=== PATIENT | female | born 1980 | race Caucasian/White ===

== ENCOUNTER → 2017-08-07 | Outpatient (CLI) | payer OTHER ==
--- NOTE | 2017-08-07 11:38 | USB ---
Reason for exam: clinical finding. History: Family history of breast cancer in grandmother. Physical Findings: Nurse did not find any significant physical abnormalities on exam. US Breast LT Left complete breast ultrasound includes all four quadrants, the retroareolar region and axilla. Finding demonstrates a 4 x 3 x 4mm oval, mixed lesion at 1 o'clock. This has subtle through transmission. Possibly a complicated cyst or cluster of cysts. These results were verbally communicated with the patient and result sheet given to the patient on 08/07/17. ASSESSMENT: Incomplete: need additional imaging evaluation, BI-RAD 0 RECOMMENDATION: Follow-up diagnostic mammogram of the left breast.
--- NOTE | 2017-08-07 11:42 | MM ---
Reason for exam: additional evaluation requested from prior study. Baseline mammogram. History: Family history of breast cancer in grandmother. MG 3D Diag Mammo W/Cad GABY Bilateral CC and MLO view(s) were taken. 3mm central asymmetry on CC and 3mm mass at 1 o'clock corresponding to mammographic finding, possibly complicated cyst. These results were verbally communicated with the patient and result sheet given to the patient on 08/07/17. ASSESSMENT: Probably benign, BI-RAD 3 RECOMMENDATION: Follow-up diagnostic mammogram of the left breast in 6 months.
== END | disposition home or self-care (01) ==
LOC: RADUSWWP 09:43
PROVIDERS: ATTEND Family Medicine
DX: R92.8 Other abnormal and inconclusive findings on diagnostic imaging of breast (principal); N61.0 Mastitis without abscess
CPT/HCPCS: 77062; 77066

== ENCOUNTER → 2018-04-20 | Outpatient (CLI) | payer OTHER | END | disposition home or self-care (01) | LOC: LABWHC1 12:05 | PROVIDERS: ATTEND Obstetrics & Gynecology | DX: Z36.9 Encounter for antenatal screening, unspecified (principal) | CPT/HCPCS: 36415; 82950 ==

== ENCOUNTER 2018-07-13 06:04 | Inpatient (IN) | payer OTHER ==
[2018-07-13] MEDS ORDERED: METHYLERGONOVINE 0.2 MG/ML 1 ML AMP IM PRN (08:02)
[2018-07-13] MEDS ORDERED: CARBOPROST TROMETHAMINE 250 MCG/ML 1 ML AMP IM PRN (08:02)
[2018-07-13] MEDS ORDERED: TERBUTALINE 1 MG/ML VIAL SQ PRN (08:02)
[2018-07-13] MEDS ORDERED: LIDOCAINE 0.5% (PF) 5 MG/ML (50 ML SDV) SQ PRN (08:02)
[2018-07-13] MEDS ORDERED: OXYTOCIN 10 UNIT/ML 1 ML VIAL IM PRN (08:02)
[2018-07-13] MEDS ORDERED: LACTATED RINGERS 1,000 ML IV SCH (08:15)
[2018-07-13 08:57] LABS: Basophils % (A) 0 %; Eosinophils # (A) 0.2 k/uL (0-0.7); Eosinophils % (A) 1 %; HCT 41.4 % (34.0-46.0); HGB 12.9 gm/dL (11.4-16.0); Lymphocytes # (A) 2.4 k/uL (1.0-4.8); Lymphocytes % (A) 13 %; MCH 29.2 pg (25.0-35.0); MCHC 31.2 g/dL (31.0-37.0); MCV 93.4 fL (80.0-100.0); Mean Platelet Volume 9.5; Monocytes # (A) 0.6 k/uL (0-1.0); Monocytes % (A) 3 %; Neutrophils % (A) 82 %; Platelet Count 247 k/uL (150-450); RBC 4.43 m/uL (3.80-5.40); RDW 13.9 % (11.5-15.5); WBC 18.4 k/uL (3.8-10.6)
[2018-07-13] MEDS ORDERED: SODIUM CHLORIDE 0.9% 100 ML BAG ONE (09:28)
[2018-07-13] MEDS ORDERED: fentaNYL (PF) 50 MCG/ML 5 ML AMP ONE (09:28)
[2018-07-13] MEDS ORDERED: ROPIVACAINE 5MG/ML 20ML VIAL ONE (09:28)
[2018-07-13] MEDS ORDERED: BENZOCAINE/MENTHOL SPRAY 1 GM/SPRAY AEROSOL TOPICAL PRN (10:43)
[2018-07-13] MEDS ORDERED: diphenhydrAMINE 50 MG CAP PO PRN (10:43)
[2018-07-13] MEDS ORDERED: HYDROcodone/APAP 5-325MG 1 EACH TAB PO PRN (10:43)
[2018-07-13] MEDS ORDERED: ZOLPIDEM 5 MG TAB PO PRN (10:43)
[2018-07-13] MEDS ORDERED: HYDROCORTISONE 2.5% RECTAL CREAM 30 GM TUBE RECTAL PRN (10:43)
[2018-07-13] MEDS ORDERED: HYDROcodone/APAP 7.5-325MG 1 EACH TAB PO PRN (10:43)
[2018-07-13] MEDS ORDERED: diphenhydrAMINE 50 MG/ML 1 ML VIAL IVP PRN ×2 (10:43)
[2018-07-13] MEDS ORDERED: IBUPROFEN 600 MG TAB PO PRN (10:43)
[2018-07-13] MEDS ORDERED: SIMETHICONE 80 MG CHEWABLE PO PRN (10:43)
[2018-07-13] MEDS ORDERED: WITCH HAZEL 1 EACH MED..PAD TOPICAL PRN (10:43)
[2018-07-13] MEDS ORDERED: diphenhydrAMINE 25 MG CAP PO PRN (10:43)
[2018-07-13] MEDS ORDERED: LANOLIN CREAM 5 GM TUBE TOPICAL PRN (10:43)
[2018-07-13] MEDS ORDERED: OXYTOCIN 20 UNITS/1000 ML NS 1,000 ML IV SCH (10:45)
--- NOTE | 2018-07-13 10:49 | P.HPOB ---
History of Present Illness H&P Date: 07/13/18 Chief Complaint: 39-5/7 weeks, labor The patient is a 38-year-old 2 para 100 to admitted at 39-5/7 weeks as established by last menstrual period and confirmed by seven-week ultrasound. She is admitted in early labor with all signs reassuring having made cervical change in triage. Her has been uncomplicated. She does fall into the category of advanced maternal age and declined testing for trisomy. On labor and delivery, all signs are reassuring. Group B strep status is negative. Obstetrical history: 2 para 1002 with a previous term twin vaginal delivery without complications. Current statistics are listed in history present illness. EDC of 07/15/2018 was established by last menstrual period and confirmed by seven-week ultrasound. Laboratory workup demonstrates a blood type of A+ with a negative antibody screen. Rubella status is immune. Remainder of the laboratory workup was within normal limits. One hour Glucola was normal and group B strep status is negative. Gynecologic history: Unremarkable with no history of any infections to include STDs. Review of Systems Review of systems is confined to history of present illness. Past Medical History Past Medical History: Fibromyalgia Additional Past Medical History / Comment(s): left shoulder pain History of Any Multi-Drug Resistant Organisms: None Reported Past Surgical History: Appendectomy Smoking Status: Current every day smoker Medications and Allergies Home Medications Medication Instructions Recorded Confirmed Type oxyCODONE-APAP 5-325MG [Percocet 1 each PO Q6HR PRN 10/15/13 07/13/18 History 5-325 mg] Ondansetron [Zofran ODT] 4 mg PO Q8HR PRN 01/11/15 04/06/15 History Ondansetron Odt [Zofran ODT] 4 mg PO Q8HR PRN #20 tab 04/06/15 07/13/18 Rx Allergies Allergy/AdvReac Type Severity Reaction Status Date / Time Penicillins Allergy Unknown Verified 07/13/18 06:19 lorazepam [From Ativan] AdvReac Hallucinati Verified 07/13/18 06:19 ons Exam Vital Signs Temp Pulse Resp BP Pulse Ox 07/13/18 06:20 96.9 F L 68 16 118/89 98 Intake and Output 07/12/18 07/13/18 07/13/18 22:59 06:59 14:59 Other: Weight 75.296 kg In general, this is a well-developed, well-nourished white female in some discomfort as she is in labor. Her heart has a regular rhythm and rate without murmur. Her lungs are clear to auscultation bilaterally in all adams. Her abdomen is gravid, nondistended, has normal active bowel sounds, is soft, nontender, and without any palpable masses aside from uterine fundus. Her extremities are without any cyanosis, clubbing, or edema and are nontender to palpation bilaterally. Digital cervical examination demonstrated cervix to be 4 cm dilated, 90% effaced, the vertex in presentation at -1-2 station. Artificial rupture of membranes is carried out demonstrating clear fluid. Results Result Diagrams: 07/13/18 08:30 Abnormal Lab Results - Last 24 Hours (Table) 07/13/18 Range/Units 08:30 WBC 18.4 H (3.8-10.6) k/uL Neutrophils # 15.0 H (1.3-7.7) k/uL Assessment and Plan (1) Active labor at term Current Visit: Yes Status: Acute Code(s): QER3177 - SNOMED Code(s): 19387963 Plan: The patient is admitted for active management of labor. She has undergone artificial rupture of membranes. She will have close maternal and surveillance and expectant management will be practiced. She is a good candidate for either IV or epidural analgesia, whichever she may choose.
--- NOTE | 2018-07-13 10:51 | P.PROBDLV ---
Vaginal Delivery Note - . Vaginal Delivery Note: The patient is a 38-year-old 2 para 1002 admitted at 39-5/7 weeks by good dating parameters. She is admitted in early labor with all signs reassuring. Her has been uncomplicated and she declined testing for trisomy as she follows into the category of advanced maternal age. On labor and delivery, she had artificial rupture of membranes carried out demonstrating clear fluid. She had an epidural catheter placed for analgesia. She then made rapid progress through the active phase of labor to complete. She pushed over the course of approximately 30 minutes to a normal spontaneous vaginal delivery of a viable 6 lbs. 12 oz. baby boy with Apgars of 8 at 1 minute and 9 at 5 minutes delivered in the right occiput anterior position. The placenta was delivered spontaneously, intact, and grossly normal with a grossly normal, centrally inserted three-vessel cord. There was a small midline second- degree laceration which was repaired in standard fashion using 3-0 chromic catgut without difficulty. Estimated blood loss for the entire case was approximately 150 mL. There are no complications. All sponge, instrument, and needle counts were correct. Both mother and are resting comfortably in recovery.
[2018-07-13 11:01] VITALS: BMI 26.8
[2018-07-13] MEDS: ACETAMINOPHEN TAB 325 MG TAB PO PRN (20:03)
[2018-07-13] MEDS: SENNOSIDES-DOCUSATE SODIUM 1 EACH TAB PO SCH (20:05)
[2018-07-14] MEDS: ACETAMINOPHEN TAB 325 MG TAB PO PRN ×3 (04:31→18:24)
[2018-07-14] MEDS: LACTATED RINGERS 1,000 ML IV SCH ×2 (08:24→16:00)
[2018-07-14] MEDS: SENNOSIDES-DOCUSATE SODIUM 1 EACH TAB PO SCH ×2 (08:25→21:34)
--- NOTE | 2018-07-14 08:54 | P.PNOBGVD ---
Subjective - Subjective Patient reports: Reports appetite normal, Reports voiding normally, Reports pain well controlled, Reports ambulating normally : doing well, in NICU (Under observation for possible narcotics withdrawal.) Objective - Latest Vital Signs Latest vital signs: Vital Signs Temp Pulse Pulse Resp BP BP Pulse Ox 07/14/18 04:00 98.1 F 78 18 97/63 98 07/14/18 01:00 98.4 F 78 18 95/60 98 07/13/18 20:20 98.8 F 64 18 110/73 99 07/13/18 16:00 97.6 F 70 16 109/66 97 07/13/18 13:49 98.5 F 75 16 115/65 07/13/18 12:46 98.9 F 72 16 113/65 07/13/18 12:16 99.0 F 74 16 101/68 07/13/18 12:00 98.1 F 67 16 111/70 07/13/18 11:01 98.1 F 85 16 119/76 07/13/18 10:46 97.7 F 85 16 118/69 Intake and Output 07/13/18 07/14/18 07/14/18 22:59 06:59 14:59 Intake Total 200 300 Balance 200 300 Intake: Oral 200 300 Other: # Voids 1 1 - Exam Extremities: Present: normal Abdomen: Present: normal appearance, soft Uterus: Present: normal, firm (The uterine fundus is tonic and nontender low the umbilicus.) - Labs Labs: Abnormal Lab Results - Last 24 Hours (Table) 07/13/18 Range/Units 08:30 WBC 18.4 H (3.8-10.6) k/uL Neutrophils # 15.0 H (1.3-7.7) k/uL Assessment and Plan (1) Active labor at term Current Visit: Yes Status: Acute Code(s): [id number] - SNOMED Code(s): 84395086 (2) Normal spontaneous vaginal delivery Current Visit: Yes Status: Acute Code(s): O80 - ENCOUNTER FOR FULL-TERM UNCOMPLICATED DELIVERY SNOMED Code(s): 11588374 Plan: Continue routine care. I anticipate discharge home tomorrow pending no complications.
[2018-07-14 21:37] VITALS: RESP 18
[2018-07-15] MEDS: ACETAMINOPHEN TAB 325 MG TAB PO PRN ×2 (04:19→08:46)
[2018-07-15 05:35] VITALS: BP 112/74; PULSE 60; TEMP 97.7
[2018-07-15] MEDS: SENNOSIDES-DOCUSATE SODIUM 1 EACH TAB PO SCH (08:01)
--- NOTE | 2018-07-15 08:56 | P.DS ---
Providers Date of admission: 07/13/18 08:13 Expected date of discharge: 07/15/18 Attending physician: Carlton Valdes Primary care physician: Stated None - Discharge Diagnosis(es) (1) Active labor at term Current Visit: Yes Status: Acute (2) Normal spontaneous vaginal delivery Current Visit: Yes Status: Acute Hospital Course: The patient is a 38-year-old 2 para 1002 admitted at 39-5/7 weeks by good dating parameters. She is admitted in early labor with all signs reassuring. Her was uncomplicated though she follows into the category of advanced maternal age and declined testing for trisomy. On labor and delivery, all signs reassuring. She underwent artificial rupture of membranes for clear fluid. She had an epidural catheter placed for analgesia and progressed quickly to complete where after she pushed to a normal spontaneous vaginal delivery of a viable 6 lbs. 12 oz. baby boy with Apgars of 8 at 1 minute and 9 at 5 minutes. The patient's course was unremarkable with vital signs remaining stable and her temperature was afebrile throughout. She was deemed stable for discharge on day #2 and was discharged home to follow-up in the office in 6 weeks' time routinely. Discharge instructions included calling for any significantly increased bleeding or foul-smelling lochia, significantly increased fever or abdominal pain, perineal complaints, breast complaints, or anything else that concerned her. She was additionally instructed to have nothing in the vagina for at least 6 weeks time to include intercourse. She understood all of her instructions and agrees to follow up as noted above. Discharge medications included continued vitamins as well as [id number] analgesic pain medications as needed. Maternal blood type is A+ and rubella status is immune. The infant remains and special care for observation for possible ongoing symptoms of withdrawal as the patient took occasionally Percocet during the . Procedures: #1. Artificial rupture of membranes #2. Epidural analgesia #3. Normal spontaneous vaginal delivery #4. Repair of perineal laceration Patient Condition at Discharge: Stable Plan - Discharge Summary New Discharge Prescriptions: No Action oxyCODONE-APAP 5-325MG [Percocet 5-325 mg] 1 each PO Q6HR PRN PRN Reason: Pain Ondansetron [Zofran ODT] 4 mg PO Q8HR PRN PRN Reason: Nausea Ondansetron Odt [Zofran ODT] 4 mg PO Q8HR PRN #20 tab PRN Reason: Nausea Discharge Medication List oxyCODONE-APAP 5-325MG [Percocet 5-325 mg] 1 each PO Q6HR PRN 10/15/13 [History] Ondansetron [Zofran ODT] 4 mg PO Q8HR PRN 01/11/15 [History] Ondansetron Odt [Zofran ODT] 4 mg PO Q8HR PRN #20 tab 04/06/15 [Rx] Follow up Appointment(s)/Referral(s): Carlton Valdes MD [STAFF PHYSICIAN] - 6 Weeks Discharge Disposition: HOME SELF-CARE
== END 2018-07-15 12:42 | disposition home or self-care (01) | DRG 807 ==
LOC: FBPOP 06:04 → 4FBP 08:13 → 4MS4W 19:00
PROVIDERS: ADMIT Obstetrics & Gynecology; ATTEND Obstetrics & Gynecology
PROC: 10E0XZZ Delivery of Products of Conception, External Approach (ICD-10-PCS; principal; 2018-07-13)
PROC: 0KQM0ZZ Repair Perineum Muscle, Open Approach (ICD-10-PCS; 2018-07-13)
PROC: 00HU33Z Insertion of Infusion Device into Spinal Canal, Percutaneous Approach (ICD-10-PCS; 2018-07-13)
PROC: 3E0R3BZ Introduction of Anesthetic Agent into Spinal Canal, Percutaneous Approach (ICD-10-PCS; 2018-07-13)
DX: O70.1 Second degree perineal laceration during delivery (principal); Z37.0 Single live birth; O99.334 Smoking (tobacco) complicating childbirth; F17.200 Nicotine dependence, unspecified, uncomplicated; M79.7 Fibromyalgia; Z71.6 Tobacco abuse counseling; Z3A.39 39 weeks gestation of pregnancy; Z79.899 Other long term (current) drug therapy; Z88.0 Allergy status to penicillin; Z88.8 Allergy status to other drugs, medicaments and biological substances
CPT/HCPCS: 59025; 85025; 86850; 86900; 86901; 99213

== ENCOUNTER → 2018-10-08 | Outpatient (CLI) | payer OTHER ==
[2018-10-08 15:28] LABS: Basophils % (A) 0 %; Eosinophils # (A) 0.8 k/uL (0-0.7); Eosinophils % (A) 10 %; HGB 13.1 gm/dL (11.4-16.0); Lymphocytes # (A) 2.5 k/uL (1.0-4.8); Lymphocytes % (A) 33 %; MCH 30.3 pg (25.0-35.0); MCV 94.7 fL (80.0-100.0); Mean Platelet Volume 6.6; Monocytes # (A) 0.3 k/uL (0-1.0); Monocytes % (A) 4 %; Neutrophils # (A) 3.9 k/uL (1.3-7.7); Neutrophils % (A) 52 %; Platelet Count 296 k/uL (150-450); RBC 4.33 m/uL (3.80-5.40); RDW 14.6 % (11.5-15.5); WBC 7.6 k/uL (3.8-10.6)
== END | disposition home or self-care (01) ==
LOC: LABWHC1 14:47
PROVIDERS: ATTEND Obstetrics & Gynecology
DX: Z01.812 Encounter for preprocedural laboratory examination (principal)
CPT/HCPCS: 85025

== ENCOUNTER 2018-10-12 08:29 | Day surgery (SDC) | payer OTHER ==
[2018-10-08 16:18] VITALS: BMI 23.3
--- NOTE | 2018-10-11 16:27 | HP ---
HISTORY AND PHYSICAL DATE OF SURGERY: 10/12/2018 The patient is a 38-year-old 2 para 2-0-0-3 who was admitted after requesting permanent sterilization. She recently underwent normal spontaneous vaginal delivery and had requested tubal sterilization with Filshie clips. She understands that this is a permanent procedure and that there are other alternatives, yet wishes to proceed. PAST MEDICAL HISTORY: Significant only for mild anxiety and depression. PAST SURGICAL HISTORY: Significant for an appendectomy in 1988 with no surgical complications or anesthetic concerns. . OBSTETRICAL HISTORY: 2, para 2-0-0-3 with a twin vaginal followed by a walker vaginal , both at term without complications. GYNECOLOGIC HISTORY: Unremarkable, with no history of any infections to include STDs. FAMILY HISTORY: Noncontributory. SOCIAL HISTORY: The patient is and is a smoker of approximately a half a pack per day. She denies any other significant social concerns. REVIEW OF SYSTEMS: Confined to history of present illness. PHYSICAL EXAMINATION: Vital signs are stable. The patient is afebrile. In general, this is a well- developed, well-nourished white female in no acute distress. Her heart has a regular rhythm and rate without murmur. Her lungs are clear to auscultation bilaterally in all adams. Her abdomen is nondistended, has normoactive bowel sounds. It is soft, nontender and without any palpable masses, hepatosplenomegaly or hernias. Her extremities are without any cyanosis, clubbing or edema and are nontender to palpation. Pelvic examination demonstrates normal external genitalia and BUS with normal vaginal mucosa and cervix. There is no cervical motion tenderness. The uterus is approximately 4-5 weeks in size, anteverted, mobile, nontender, normal in shape. The adnexa are normal and nontender without mass bilaterally. ASSESSMENT AND PLAN: Undesired fertility. The patient is admitted for laparoscopic bilateral tubal occlusion using Filshie clips. The risks and complications of the procedure have been thoroughly discussed, including the risk for bleeding, bleeding requiring transfusion, infection and injury to local structures to specifically include the bowel, bladder and ureters. I have also discussed the permanent nature of the procedure as well as its failure rate and potential risk for ectopic , should it fail. She has understood all of this and agreed to proceed. We are scheduled for the procedure on the morning of October 12, 2018. MMODL / IJN: [id number] /
[~2018-10-12 08:29] MED LIST: DEXAMETHASONE SOD PHOSPHATE 10 MG/ML 1 ML VIAL IV ONE; LACTATED RINGERS 1,000 ML IV SCH; LIDOCAINE 1% 20 ML VIAL (10MG/ML) FOR IV START INTRADERMA PRN; MIDAZOLAM 2 MG/2 ML VIAL IV PRN; ONDANSETRON 4 MG/2 ML VIAL IVP ONE; Pre Op ABX Message 1 EACH MISC MISCELLANE ONE; SCOPOLAMINE 1.5MG/72HR PATCH TRANSDERM ONE
[2018-10-12] MEDS ORDERED: GLYCOPYRROLATE 0.2 MG/ML 2 ML VIAL ONE (09:54)
[2018-10-12] MEDS ORDERED: LIDOCAINE 1% INJ 10MG/ML (20 ML MDV) ONE (09:54)
[2018-10-12] MEDS ORDERED: PROPOFOL 10 MG/ML 20 ML VIAL IV ONE (09:54)
[2018-10-12] MEDS ORDERED: KETOROLAC 30 MG/ML 1 ML VIAL ONE (09:54)
[2018-10-12] MEDS ORDERED: ROCURONIUM BROMIDE 10 MG/ML 10 ML VIAL IV ONE (09:54)
[2018-10-12] MEDS ORDERED: MEPERIDINE 50 MG/ML SYRINGE ONE (09:54)
[2018-10-12] MEDS ORDERED: NEOSTIGMINE 1 MG/ML 10 ML VIAL ONE (09:54)
[2018-10-12] MEDS ORDERED: fentaNYL (PF) 50 MCG/ML 2 ML AMP ONE (09:54)
[2018-10-12] MEDS ORDERED: METOCLOPRAMIDE 5 MG/ML 2 ML VIAL IVP PRN (10:00)
[2018-10-12] MEDS ORDERED: LACTATED RINGERS 1,000 ML IV SCH (10:00)
[2018-10-12] MEDS ORDERED: Acetaminophen-Codeine 300-30mg TAB PO PRN ×2 (10:00)
[2018-10-12] MEDS ORDERED: KETOROLAC 30 MG/ML 1 ML VIAL IVP PRN (10:00)
[2018-10-12] MEDS ORDERED: ONDANSETRON 4 MG/2 ML VIAL IVP PRN (10:00)
[2018-10-12] MEDS ORDERED: diphenhydrAMINE 50 MG/ML 1 ML VIAL IVP PRN (10:00)
[2018-10-12] MEDS ORDERED: SIMETHICONE 80 MG CHEWABLE PO PRN (10:00)
[2018-10-12] MEDS ORDERED: IBUPROFEN 600 MG TAB PO PRN (10:00)
[2018-10-12] MEDS ORDERED: BUPIVACAINE (PF) 0.5% 30 ML VIAL SQ ONE ×2 (10:14→10:29)
--- NOTE | 2018-10-12 10:35 | P.OP ---
Date of Procedure: 10/12/18 Preoperative Diagnosis: #1. Multiparity, status post normal spontaneous vaginal delivery #2. Undesired fertility Postoperative Diagnosis: Same Procedure(s) Performed: #1. Laparoscopic bilateral tubal occlusion with Filshie clips Anesthesia: JACKELINE Surgeon: Carlton Valdes Estimated Blood Loss (ml): 2 IV fluids (ml): 550 Urine output (ml): 25 Pathology: none sent Condition: stable Disposition: PACU Operative Findings: Preoperative pelvic examination demonstrated a 4-5 week retroverted and normal mobile uterus with normal adnexa bilaterally. These findings were confirmed intraoperatively with the laparoscope. There was no evidence of any pathology throughout the pelvis nor any evidence of endometriosis. There was some mild adhesions in the right lower quadrant from a prior appendectomy as well as at the umbilicus which were seen around the optical trocar. The upper abdomen was entirely normal to inspection including the liver, gallbladder, and diaphragm. The small and large bowel were also normal. Description of Procedure: The patient was prepped and draped in usual fashion after general endotracheal anesthesia was administered by the anesthesiologist. At speculum was placed and the anterior lip of the cervix grasped with a single-tooth tenaculum allowing placement of an acorn cannula for manipulation. The speculum was removed and the bladder draining approximately 25 mL of clear andrey urine. Attention was turned to the abdomen where a 5 mm incision was made in the vertical fold of the umbilicus allowing insertion of a 5 mm optical trocar under direct vision station without difficulty. A pneumoperitoneum was established. Condyle her position was utilized and a site was selected approximately 4-5 cm above the pubic symphysis in the midline where an 8 mm incision was made in the transverse plane allowing insertion of an 8 mm trocar under direct visualization without difficulty. The blunt probe was utilized to sweep the bowel from the pelvis. The findings were as noted above with no signs of any pathology. The probe was replaced the Filshie clip applicator which was utilized to place a Filshie clip across the entire thickness of the isthmic portion of the right fallopian tube approximately 2-3 cm from the cornu of the uterus where was firmly affixed. A similar operation was carried out a left without difficulty. The upper abdomen wasn't explored with the laparoscope with no findings as noted above. All instrumentation was then removed after evacuating the entire pneumoperitoneum through the trochars. The incisions were closed with interrupted subcuticular stitches of 4-0 Vicryl and then covered with half-inch Steri-Strips. The incisions were injected with a total of 10 mL of half percent Marcaine without epinephrine divided between the 2 sites. All sponge, instrument, needle counts were correct. There were no complications. The patient tolerated the procedure well and proceeded to the recovery room in stable condition.
[2018-10-12 10:47] VITALS: TEMP 97.2
[2018-10-12 10:48] VITALS: RESP 16
[2018-10-12] MEDS: HYDROmorphone 0.5 MG/0.5 ML SYRINGE IVP PRN ×2 (10:52→11:05)
[2018-10-12] MEDS ORDERED: Acetaminophen-Codeine 300-30mg TAB PO ONE ×2 (11:47→11:56)
[2018-10-12 12:26] VITALS: BP 120/79; PULSE 83
== END 2018-10-12 12:53 | disposition home or self-care (01) ==
LOC: OR 08:29
PROVIDERS: ATTEND Obstetrics & Gynecology
DX: Z30.2 Encounter for sterilization (principal); F17.210 Nicotine dependence, cigarettes, uncomplicated; Z88.5 Allergy status to narcotic agent; Z88.0 Allergy status to penicillin
CPT/HCPCS: 81025; 58671; J1100; J2710; J2175; J2405; J2001; J3010; J1885; J2704; J1170

== ENCOUNTER → 2020-04-06 | Outpatient (CLI) | payer OTHER ==
--- NOTE | 2020-04-07 01:46 | MR ---
EXAMINATION TYPE: MR cervical spine wo con DATE OF EXAM: 04/06/2020 COMPARISON: None. HISTORY: Neck pain, BUE weakness/numbness Multiplanar multiecho imaging of the cervical spine was performed without contrast. FINDINGS: Cervical vertebra have normal alignment. There is small posterior cervical disc herniation at C5-6 in the midline. There is no impingement on the cervical spinal cord. There is developmentally adequate spinal canal. There is no spinal stenosis. Cervical spinal cord has normal signal pattern. There is n o edema. Brainstem is intact. Facet joints are intact. I see no bony destructive process. There is no cervical paraspinal mass. IMPRESSION: Small posterior disc bulging and herniation in the midline at C5-6. No spinal stenosis. Mild degenera tive disc narrowing at C5-6.
== END | disposition home or self-care (01) ==
LOC: RADMRIMAIN 21:43
PROVIDERS: ATTEND Psychiatry & Neurology Neurology
DX: M50.222 Other cervical disc displacement at C5-C6 level (principal); M50.322 Other cervical disc degeneration at C5-C6 level
CPT/HCPCS: 72141

== ENCOUNTER → 2022-06-19 | Outpatient (CLI) | payer OTHER ==
--- NOTE | 2022-06-20 07:48 | MM ---
Reason for Exam: Screening (asymptomatic). Last mammogram was performed 4 year(s) and 10 month(s) ago. Patient History: Menarche at age 14. First Full-Term at age 30. Maternal grandmother had breast cancer. Risk Values: Bianca 5 year model risk: 0.7%. NCI Lifetime model risk: 11.0%. Prior Study Comparison: 08/07/2017 Bilateral Diagnostic Mammogram, [facility]. Tissue Density: There are scattered fibroglandular densities. Findings: Analyzed By CAD. Possible oval obscured mass in the posterior right breast on MLO image also could reflect tortuous vessel. Overall Assessment: Incomplete: need additional imaging evaluation, BI-RAD 0 Management: Diagnostic Mammogram of the right breast. Return for additional spot MLO and true lateral view right breast. [facility] will attempt to contact patient to return for supplemental views and ultrasound if indicated. Patient should continue monthly self-breast exams. A clinical breast exam by your physician is recommended on an annual basis. This exam should not preclude additional follow-up of suspicious palpable abnormalities. Note on Bianca scores and lifetime risk: 1. A Bianca score greater than 3% is considered moderate risk. If this is the case, consider specialist referral to assess eligibility for a risk reducing agent. 2. If overall lifetime risk for the development of breast cancer is 20% or higher, the patient may qualify for future screening with alternating mammogram and breast MRI. Electronically signed and approved by: Bhaskar Lay M.D.
== END | disposition home or self-care (01) ==
LOC: RADMAMWWP 11:16
PROVIDERS: ATTEND Obstetrics & Gynecology
DX: Z12.31 Encounter for screening mammogram for malignant neoplasm of breast (principal); Z80.3 Family history of malignant neoplasm of breast
CPT/HCPCS: 77067

== ENCOUNTER → 2022-06-24 | Outpatient (CLI) | payer OTHER ==
--- NOTE | 2022-06-24 10:07 | MM ---
Reason for Exam: Additional evaluation requested from abnormal screening. Last screening mammogram was performed less than 1 month ago. Patient History: Menarche at age 14. First Full-Term at age 30. Maternal grandmother had breast cancer. Risk Values: Bianca 5 year model risk: 0.7%. NCI Lifetime model risk: 11.0%. Tissue Density: Right: There are scattered fibroglandular densities. Findings: Analyzed By CAD. Asymmetry is less well appreciated on today's exam it is expected to be partially visualized 12-14 cm from nipple on spot MLO view at posterior depth slightly inferiorly. Overall Assessment: Incomplete: need additional imaging evaluation, BI-RAD 0 Management: Diagnostic Breast Ultrasound of the right breast. Precautionary ultrasound of the area to exclude underlying lesion as it may not be in the [id number]. Results were given to the patient verbally at the time of exam. Patient should continue monthly self-breast exams. A clinical breast exam by your physician is recommended on an annual basis. This exam should not preclude additional follow-up of suspicious palpable abnormalities. Note on Bianca scores and lifetime risk: 1. A Bianca score greater than 3% is considered moderate risk. If this is the case, consider specialist referral to assess eligibility for a risk reducing agent. 2. If overall lifetime risk for the development of breast cancer is 20% or higher, the patient may qualify for future screening with alternating mammogram and breast MRI. Electronically signed and approved by: Huseyin Sandhu DO
--- NOTE | 2022-06-24 10:33 | USB ---
Reason for Exam: Additional evaluation requested from abnormal screening. Patient History: Menarche at age 14. First Full-Term at age 30. Maternal grandmother had breast cancer. Risk Values: Bianca 5 year model risk: 0.7%. NCI Lifetime model risk: 11.0%. Technique: Method: Targeted. Prior Study Comparison: 08/07/2017 Bilateral Diagnostic Mammogram, [facility]. 06/19/2022 Bilateral MG screening mammo w CAD, [facility]. Findings: The lower section of the breast of the right breast, the axilla of the right breast and the retroareolar of the right breast were scanned. Imaged: Ultrasound imaging of: Area of concern, retroareolar region and axilla. No evidence for organizing fluid collection or mass. Overall Assessment: Benign, BI-RAD 2 Management: Screening Mammogram of both breasts in 1 year. A clinical breast exam by your physician is recommended on an annual basis and results should be correlated with mammographic findings. This exam should not preclude additional follow-up of suspicious palpable abnormalities. Results were given to the patient verbally at the time of exam. Electronically signed and approved by: Huseyin Sandhu DO
== END | disposition home or self-care (01) ==
LOC: RADMAMWWP 09:13
PROVIDERS: ATTEND Obstetrics & Gynecology
DX: R92.8 Other abnormal and inconclusive findings on diagnostic imaging of breast (principal); Z80.3 Family history of malignant neoplasm of breast
CPT/HCPCS: 77061; 77065

== ENCOUNTER 2023-02-16 00:53 | Emergency (ER) | payer OTHER ==
[2023-02-16 01:25] VITALS: BP 106/71; PULSE 88; RESP 18; TEMP 97.7
--- NOTE | 2023-02-16 02:19 | XR ---
EXAM: XR Left Hand Complete, 3 or More Views CLINICAL HISTORY: ITS.REASON XR Reason: fall injury TECHNIQUE: Frontal, lateral and oblique views of the left hand. COMPARISON: No relevant prior studies available. FINDINGS: Bones/joints: Unremarkable. No acute fracture. No dislocation. Soft tissues: Unremarkable. No radiopaque foreign body. IMPRESSION: Normal left hand x-rays.
--- NOTE | 2023-02-16 02:38 | ED ---
Upper Extremity HPI - General Chief Complaint: Extremity Injury, Upper Stated Complaint: Left Thumb Injury Time Seen by Provider: 02/16/23 01:19 Source: patient Mode of arrival: ambulatory Limitations: no limitations - History of Present Illness Initial Comments: This patient is a 43-year-old woman who presents to have evaluation of left thumb injury. Patient states that she was falling and attempted to catch her self. This resulted in hyperextension of the left thumb. She has pain now with range of motion. There is swelling. She denies loss of strength or sensation. No previous patient right hand MD Complaint: Injury to:: left, finger Onset/Timin -: hour(s) Other Extremity Injury: Fingers: Left Handedness: right Place: home Improves With: immobilization Worsens With: movement of extremity Context: fall Associated Symptoms: denies other symptoms - Related Data Home Medications Medication Instructions Recorded Confirmed oxyCODONE-APAP 5-325MG [Percocet 1 each PO Q6HR PRN 10/15/13 10/12/18 5-325 mg] Acetaminophen [Tylenol Extra 1,000 mg PO Q6H PRN 10/08/18 10/08/18 Strength] Allergies Allergy/AdvReac Type Severity Reaction Status Date / Time hydrocodone [From [place]amy] Allergy Itching Verified 02/16/23 00:59 Penicillins Allergy Unknown Verified 02/16/23 00:59 pregabalin [From Lyrica] Allergy "SEIZURE-LIKE Verified 02/16/23 00:59 ACTIVITY" gabapentin [From Neurontin] AdvReac DYSPHAGIA Verified 02/16/23 00:59 lorazepam [From Ativan] AdvReac Hallucinati Verified 02/16/23 00:59 ons Review of Systems ROS Statement: Those systems with pertinent positive or pertinent negative responses have been documented in the HPI. ROS Other: All systems not noted in ROS Statement are negative. Musculoskeletal: Reports: as per HPI, arthralgia Skin: Denies: lesions Neurological: Denies: weakness, numbness Past Medical History Past Medical History: Fibromyalgia Additional Past Medical History / Comment(s): left shoulder pain History of Any Multi-Drug Resistant Organisms: None Reported Past Surgical History: Appendectomy Past Anesthesia/Blood Transfusion Reactions: No Reported Reaction Past Psychological History: Anxiety, Bipolar, Depression Past Alcohol Use History: None Reported Past Drug Use History: None Reported - Past Family History Mother Family Medical History: No Reported History General Exam Limitations: no limitations General appearance: alert, in no apparent distress Cardiovascular Exam: Present: other (Normal radial artery pulse and capillary refill) Left Elbow exam: Present: normal inspection, full ROM. Absent: tenderness, swelling Forearm Wrist exam: Present: normal inspection, full ROM. Absent: tenderness, swelling Hand Wrist exam: Present: tenderness, swelling. Absent: full ROM, abrasion, laceration, ecchymosis, deformity, crepitus, dislocation, erythema, amputation, nail avulsion, subungual hematoma Neuro motor exam: Present: wrist extension intact, thumb opposition intact, fingers 2-5 abduction intact Neurosensory exam: Present: 2-point discrimination, radial nerve intact, ulnar nerve intact, median nerve intact Vascular: Present: normal capillary refill. Absent: vascular compromise, pulse deficit radial art, pulse deficit ulnar art Neurological exam: Absent: motor sensory deficit Skin exam: Present: warm, dry, intact, normal color. Absent: rash Course Vital Signs 02/16/23 00:55 Temperature 97.7 F Pulse Rate 88 Respiratory 18 Rate Blood Pressure 106/71 O2 Sat by Pulse 97 Oximetry Medical Decision Making - Medical Decision Making The patient had left hand x-rays which I interpreted as negative for acute fracture or dislocation Was pt. sent in by a medical professional or institution (AKHIL Humphreys, MACHINE FEATHEREDGER AND REDUCER, urgent care, hospital, or half-way...) When possible be specific @ -[No] Did you speak to anyone other than the patient for history (EMS, parent, family, police, friend...)? What history was obtained from this source @ -[No] Did you review nursing and triage notes (agree or disagree)? Why? @ -[I reviewed and agree with nursing and triage notes] Were old charts reviewed (outside hosp., previous admission, EMS record, old EKG, old radiological studies, urgent care reports/EKG's, half-way records)? Report findings @ -[No old charts were reviewed] Differential Diagnosis (chest pain, altered mental status, abdominal pain women, abdominal pain men, vaginal bleeding, weakness, fever, dyspnea, syncope, headache, dizziness, GI bleed, back pain, seizure, CVA, palpatations, mental health, musculoskeletal)? @ -[Differential Musculoskeletal Muscular strain, contusion, ligament sprain, fracture, arthritis, septic arthritis, bursitis, cellulitis, muscle spasm, nerve compression, DVT, arterial occlusion, herpes zoster, electrolyte abnormality, tumor.... This is not meant to be in all inclusive list EKG interpreted by me (3pts min.). @ -[As above] X-rays interpreted by me (1pt min.). @ -[I interpreted as above CT interpreted by me (1pt min.). @ -[None done] U/S interpreted by me (1pt. min.). @ -[None done] What testing was considered but not performed or refused? (CT, X-rays, U/S, labs)? Why? @ -[None] What meds were considered but not given or refused? Why? @ -[None] Did you discuss the management of the patient with other professionals (professionals i.e. , PA, MACHINE FEATHEREDGER AND REDUCER, lab, RT, psych nurse, social insurance analyst, typing secretary, teacher, house officer, egg caser)? Give summary @ -[No] Was smoking cessation discussed for >3mins.? @ -[No] Was critical care preformed (if so, how long)? @ -[No] Were there social determinants of health that impacted care today? How? (Homelessness, low income, unemployed, alcoholism, drug addiction, tr ansportation, low edu. Level, literacy, decrease access to med. care, long-term, rehab)? @ -[No] Was there de-escalation of care discussed even if they declined (Discuss DNR or withdrawal of care, Hospice)? DNR status @ -[No] What co-morbidities impacted this encounter? (DM, HTN, Smoking, COPD, CAD, Cancer, CVA, ARF, Chemo, Hep., AIDS, mental health diagnosis, sleep apnea, morbid obesity)? @ -[None] Was patient admitted / discharged? Hospital course, mention meds given and route, prescriptions, significant lab abnormalities, going to OR and other pertinent info. @ -[Patient is 43-year-old woman with left thumb injury. We discussed appropriate further care and follow-up as well as possibility of occult fracture needing repeat x-ray of no significant improvement within 6-7 days. Undiagnosed new problem with uncertain prognosis? @ -[No] Drug Therapy requiring intensive monitoring for toxicity (Heparin, Nitro, Insulin, Cardizem)? @ -[No] Were any procedures done? @ -[No] Diagnosis/symptom? @ -[Acute thumb sprain Acute, or Chronic, or Acute on Chronic? @ -[default] Uncomplicated (without systemic symptoms) or Complicated (systemic symptoms)? @ -[Uncomplicated Side effects of treatment? @ -[No] Exacerbation, Progression, or Severe Exacerbation? @ -[No] Poses a threat to life or bodily function? How? (Chest pain, USA, PA, pneumonia, PE, COPD, DKA, ARF, appy, cholecystitis, CVA, Diverticulitis, Homicidal, Suicidal, threat to staff... and all critical care pts) @ -[No] Disposition Clinical Impression: Sprain, thumb, Sprain of finger Disposition: HOME SELF-CARE Condition: Good Instructions (If sedation given, give patient instructions): Hand Sprain (ED) Is patient prescribed a controlled substance at d/c from ED?: No Referrals: Stacy Nunez DO [Primary Care Provider] - 1-2 days Bertrand Benítez DO [Doctor of Osteopathic Medicine] - 1-2 days
== END 2023-02-16 02:50 | disposition home or self-care (01) ==
LOC: EC 00:53
DX: S63.602A Unspecified sprain of left thumb, initial encounter (principal); Z86.59 Personal history of other mental and behavioral disorders; Z88.5 Allergy status to narcotic agent; Z88.0 Allergy status to penicillin; Z88.8 Allergy status to other drugs, medicaments and biological substances; W19.XXXA Unspecified fall, initial encounter; Y92.009 Unspecified place in unspecified non-institutional (private) residence as the place of occurrence of the external cause
CPT/HCPCS: 99283

== ENCOUNTER 2023-08-04 02:04 | Emergency (ER) | payer OTHER ==
[2023-08-04 02:10] VITALS: TEMP 97.9
--- NOTE | 2023-08-04 02:26 | ED ---
General Adult HPI - General Source: patient, RN notes reviewed Mode of arrival: ambulatory Limitations: no limitations <Coleman Palacios - Last Filed: 08/04/23 04:13> <Guadalupe Almaguer - Last Filed: 08/07/23 17:18> - General Chief complaint: Nausea/Vomiting/Diarrhea Stated complaint: Vomiting, Abdominal Pain Time Seen by Provider: 08/04/23 02:12 - History of Present Illness Initial comments: 43-year-old female presenting to the ED with complaints of nausea vomiting. Patient reports over the past few days has had some congestion and sore throat also with some associated chills. Today onset of some nausea and vomiting with diffuse abdominal pain. No changes in bowel or bladder habits. No chest pain or shortness of breath. No other complaints at this time. Denies being a drinker. (Coleman Palacios) - Related Data Home Medications Medication Instructions Recorded Confirmed oxyCODONE-APAP 5-325MG [Percocet 1 tab PO Q6HR PRN 10/15/13 08/07/23 5-325 mg] L.acidoph,Paracasei, B.lactis 1 cap PO PC-BRKFST 08/07/23 08/07/23 [Probiotic] Magnesium Oxide [Magnesium] 500 mg PO PC-BRKFST 08/07/23 08/07/23 Sertraline [Zoloft] 100 mg PO HS 08/07/23 08/07/23 Allergies Allergy/AdvReac Type Severity Reaction Status Date / Time hydrocodone [From [place]] Allergy Itching Verified 08/07/23 08:11 Milk Containing Products Allergy Unknown Verified 08/07/23 08:14 (Dairy) [Dairy] Penicillins Allergy Unknown Verified 08/07/23 08:11 Childhood pregabalin [From Lyrica] Allergy "SEIZURE-LIKE Verified 08/07/23 08:11 ACTIVITY" gabapentin [From Neurontin] AdvReac DYSPHAGIA Verified 08/07/23 08:11 lorazepam [From Ativan] AdvReac Hallucinati Verified 08/07/23 08:11 ons Review of Systems ROS Other: All systems not noted in ROS Statement are negative. <Coleman Palacios - Last Filed: 08/04/23 04:13> ROS Other: All systems not noted in ROS Statement are negative. <Guadalupe Almaguer - Last Filed: 08/07/23 17:18> ROS Statement: Those systems with pertinent positive or pertinent negative responses have been documented in the HPI. Past Medical History Past Medical History: Fibromyalgia Additional Past Medical History / Comment(s): left shoulder pain History of Any Multi-Drug Resistant Organisms: None Reported Past Surgical History: Appendectomy Past Anesthesia/Blood Transfusion Reactions: No Reported Reaction Past Psychological History: Anxiety, Bipolar, Depression Smoking Status: Current every day smoker Past Alcohol Use History: None Reported Past Drug Use History: None Reported - Past Family History Mother Family Medical History: No Reported History <SuzanneColeman - Last Filed: 08/04/23 04:13> General Exam Limitations: no limitations General appearance: alert Eye exam: Present: normal appearance ENT exam: Present: mucous membranes moist Respiratory exam: Present: normal lung sounds bilaterally Cardiovascular Exam: Present: regular rate GI/Abdominal exam: Present: soft (Diffuse abdominal tenderness to palpation. No rebound guarding or rigidity. No CVA tenderness to percussion bilaterally.) Neurological exam: Present: alert, oriented X3 Skin exam: Present: warm, dry <SuzanneColeman - Last Filed: 08/04/23 04:13> Course Vital Signs 08/04/23 08/04/23 02:08 06:00 Temperature 97.9 F Pulse Rate 64 68 Respiratory 18 16 Rate Blood Pressure 129/90 120/76 O2 Sat by Pulse 99 95 Oximetry Medical Decision Making - Lab Data Result diagrams: 08/04/23 02:45 08/04/23 02:45 <Coleman Palacios - Last Filed: 08/04/23 04:13> - Lab Data Result diagrams: 08/04/23 02:45 08/04/23 02:45 <Guadalupe Almaguer - Last Filed: 08/07/23 17:18> - Medical Decision Making Was pt. sent in by a medical professional or institution (AKHIL Humphreys, MANAGER BABY, urgent care, hospital, or halfway...) When possible be specific @ -No Did you speak to anyone other than the patient for history (EMS, parent, family, police, friend...)? What history was obtained from this source @ -No Did you review nursing and triage notes (agree or disagree)? Why? @ -I reviewed and agree with nursing and triage notes Were old charts reviewed (outside hosp., previous admission, EMS record, old EKG, old radiological studies, urgent care reports/EKG's, halfway records)? Report findings @ -No old charts were reviewed Differential Diagnosis (chest pain, altered mental status, abdominal pain women, abdominal pain men, vaginal bleeding, weakness, fever, dyspnea, syncope, headache, dizziness, GI bleed, back pain, seizure, CVA, palpatations, mental health, musculoskeletal)? @ -Differential Abdominal Pain Women: Appendicitis, Cholecystitis, diverticulosis, ischemic bowel, pancreatitis, hepatitis, UTI, gastroenteritis, AAA, incarcerated hernia, bowel obstruction, constipation, inflammatory bowel, hepatitis, peptic ulcer disease, splenic infarction, perforated viscus, vulvitis, ovarian torsion, PID, kidney stone, placenta abruption, this is not meant to be an all-inclusive list EKG interpreted by me (3pts min.). @ -None X-rays interpreted by me (1pt min.). @ -None done CT interpreted by me (1pt min.). @ -None done U/S interpreted by me (1pt. min.). @ -None done What testing was considered but not performed or refused? (CT, X-rays, U/S, labs)? Why? @ -None What meds were considered but not given or refused? Why? @ -None Did you discuss the management of the patient with other professionals (gilmar moran i.e. , PA, MANAGER BABY, lab, RT, psych nurse, social media coordinator, piercing machine operator, teacher, ground defence officer, bottle caser)? Give summary @ -No Was smoking cessation discussed for >3mins.? @ -No Was critical care preformed (if so, how long)? @ -No Were there social determinants of health that impacted care today? How? (Homelessness, low income, unemployed, alcoholism, drug addiction, transportation, low edu. Level, literacy, decrease access to med. care, half-way, rehab)? @ -No Was there de-escalation of care discussed even if they declined (Discuss DNR or withdrawal of care, Hospice)? DNR status @ -No What co-morbidities impacted this encounter? (DM, HTN, Smoking, COPD, CAD, Cancer, CVA, ARF, Chemo, Hep., AIDS, mental health diagnosis, sleep apnea, morbid obesity)? @ -None Was patient admitted / discharged? Hospital course, mention meds given and route, prescriptions, significant lab abnormalities, going to OR and other pertinent info. @ -Pending 43-year-old female presenting to the ED with complaints of diffuse abdominal pain with nausea and vomiting. At this time urine sample pending. Case signed out to my attending physician, Dr. Almaguer, for further disposition and managemen t. (Coleman Palacios) Patient signed out to me pending UA results. I do reevaluate the patient she continues to have nausea with vomiting. She is given another dose of antiemet ics. Recommends admission she is persistently vomiting. Patient refused stating that she wants to go home. She understands the risks that she may continue vomiting at home and will have to return to the emergency department. Patient continues to adamantly want to leave. She will be given a prescription for Zofran at home. She needs to follow-up with her doctor in 2 to 4 days and return for any new or worsening symptoms (Guadalupe Almaguer) - Lab Data Lab Results 08/04/23 08/04/23 08/04/23 Range/Units 02:45 02:45 02:45 WBC 10.3 (3.8-10.6) k/uL RBC 5.13 (3.80-5.40) m/uL Hgb 15.7 (11.4-16.0) gm/dL Hct 49.3 H (34.0-46.0) % MCV 96.2 (80.0-100.0) fL MCH 30.6 (25.0-35.0) pg MCHC 31.8 (31.0-37.0) g/dL RDW 13.2 (11.5-15.5) % Plt Count 369 (150-450) k/uL MPV 8.1 Neutrophils % 67 % Lymphocytes % 24 % Monocytes % 4 % Eosinophils % 3 % Basophils % 1 % Neutrophils # 6.9 (1.3-7.7) k/uL Lymphocytes # 2.5 (1.0-4.8) k/uL Monocytes # 0.4 (0-1.0) k/uL Eosinophils # 0.3 (0-0.7) k/uL Basophils # 0.1 (0-0.2) k/uL Sodium 141 (137-145) mmol/L Potassium 3.5 (3.5-5.1) mmol/L Chloride 109 H (98-107) mmol/L Carbon Dioxide 18 L (22-30) mmol/L Anion Gap 14 mmol/L BUN 13 (7-17) mg/dL Creatinine 0.79 (0.52-1.04) mg/dL Est GFR (CKD-EPI)AfAm >90 (>60 ml/min/1.73 sqM) Est GFR (CKD-EPI)NonAf >90 (>60 ml/min/1.73 sqM) Glucose 154 H (74-99) mg/dL Calcium 10.5 H (8.4-10.2) mg/dL Total Bilirubin 1.1 (0.2-1.3) mg/dL AST 24 (14-36) U/L ALT 13 (4-34) U/L Alkaline Phosphatase 127 H (38-126) U/L Total Protein 8.1 (6.3-8.2) g/dL Albumin 5.2 H (3.5-5.0) g/dL Amylase 73 (30-110) U/L Lipase 224 (23-300) U/L Urine Color Urine Appearance (Clear) Urine pH (5.0-8.0) Ur Specific [place] (1.001-1.035) Urine Protein (Negative) Urine Glucose (UA) (Negative) Urine Ketones (Negative) Urine Blood (Negative) Urine Nitrite (Negative) Urine Bilirubin (Negative) Urine Urobilinogen (<2.0) mg/dL Ur Leukocyte Esterase (Negative) Urine WBC (0-5) /hpf Ur Squamous Epith Cells (0-4) /hpf Calcium Oxalate Crystal (None) /hpf Urine Bacteria (None) /hpf Hyaline Casts (0-2) /lpf Urine Mucus (None) /hpf Urine HCG, Qual (Not Detectd) Influenza Type A (PCR) Not Detected (Not Detectd) Influenza Type B (PCR) Not Detected (Not Detectd) RSV (PCR) Not Detected (Not Detectd) SARS-CoV-2 (PCR) Not Detected (Not Detectd) 08/04/23 08/04/23 Range/Units 04:30 04:30 WBC (3.8-10.6) k/uL RBC (3.80-5.40) m/uL Hgb (11.4-16.0) gm/dL Hct (34.0-46.0) % MCV (80.0-100.0) fL MCH (25.0-35.0) pg MCHC (31.0-37.0) g/dL RDW (11.5-15.5) % Plt Count (150-450) k/uL MPV Neutrophils % % Lymphocytes % % Monocytes % % Eosinophils % % Basophils % % Neutrophils # (1.3-7.7) k/uL Lymphocytes # (1.0-4.8) k/uL Monocytes # (0-1.0) k/uL Eosinophils # (0-0.7) k/uL Basophils # (0-0.2) k/uL Sodium (137-145) mmol/L Potassium (3.5-5.1) mmol/L Chloride (98-107) mmol/L Carbon Dioxide (22-30) mmol/L Anion Gap mmol/L BUN (7-17) mg/dL Creatinine (0.52-1.04) mg/dL Est GFR (CKD-EPI)AfAm (>60 ml/min/1.73 sqM) Est GFR (CKD-EPI)NonAf (>60 ml/min/1.73 sqM) Glucose (74-99) mg/dL Calcium (8.4-10.2) mg/dL Total Bilirubin (0.2-1.3) mg/dL AST (14-36) U/L ALT (4-34) U/L Alkaline Phosphatase (38-126) U/L Total Protein (6.3-8.2) g/dL Albumin (3.5-5.0) g/dL Amylase (30-110) U/L Lipase (23-300) U/L Urine Color Yellow Urine Appearance Cloudy H (Clear) Urine pH 8.0 (5.0-8.0) Ur Specific [place] 1.029 (1.001-1.035) Urine Protein 1+ H (Negative) Urine Glucose (UA) Negative (Negative) Urine Ketones 3+ H (Negative) Urine Blood Negative (Negative) Urine Nitrite Negative (Negative) Urine Bilirubin Negative (Negative) Urine Urobilinogen 3.0 (<2.0) mg/dL Ur Leukocyte Esterase Negative (Negative) Urine WBC 4 (0-5) /hpf Ur Squamous Epith Cells 9 H (0-4) /hpf Calcium Oxalate Crystal Occasional H (None) /hpf Urine Bacteria Rare H (None) /hpf Hyaline Casts 7 H (0-2) /lpf Urine Mucus Many H (None) /hpf Urine HCG, Qual Not Detected (Not Detectd) Influenza Type A (PCR) (Not Detectd) Influenza Type B (PCR) (Not Detectd) RSV (PCR) (Not Detectd) SARS-CoV-2 (PCR) (Not Detectd) Disposition <Coleman Palacios - Last Filed: 08/04/23 04:13> Is patient prescribed a controlled substance at d/c from ED?: No Time of Disposition: 05:36 <Guadalupe Almaguer - Last Filed: 08/07/23 17:18> Clinical Impression: Nausea and vomiting Disposition: HOME SELF-CARE Condition: Stable Instructions (If sedation given, give patient instructions): Acute Nausea and Vomiting (ED) Additional Instructions: Please use the nausea medications as needed. Follow-up with your primary care doctor and return for any new or worsening symptoms Referrals: Stacy Nunez DO [Primary Care Provider] - 1-2 days
[2023-08-04] MEDS: ONDANSETRON 4 MG/2 ML VIAL IVP STA (02:44)
[2023-08-04] MEDS: SODIUM CHLORIDE 0.9% 1,000 ML IV STA (02:46)
[2023-08-04 03:03] LABS: ALT 13 U/L (4-34); AST 24 U/L (14-36); African American GFR (CKD) >90 (>60 ml/min/1.73 sqM); Albumin 5.2 g/dL (3.5-5.0); Alkaline Phosphatase 127 U/L (38-126); Amylase 73 U/L (30-110); Anion Gap 14 mmol/L; Blood Urea Nitrogen 13 mg/dL (7-17); Calcium 10.5 mg/dL (8.4-10.2); Carbon Dioxide 18 mmol/L (22-30); Chloride 109 mmol/L (98-107); Glucose 154 mg/dL (74-99); Lipase 224 U/L (23-300); Non-African American GFR(CKD) >90 (>60 ml/min/1.73 sqM); Potassium 3.5 mmol/L (3.5-5.1); Sodium 141 mmol/L (137-145); Total Bilirubin 1.1 mg/dL (0.2-1.3); Total Protein 8.1 g/dL (6.3-8.2)
[2023-08-04 03:11] LABS: Basophils # (A) 0.1 k/uL (0-0.2); Basophils % (A) 1 %; Eosinophils # (A) 0.3 k/uL (0-0.7); Eosinophils % (A) 3 %; HCT 49.3 % (34.0-46.0); HGB 15.7 gm/dL (11.4-16.0); Lymphocytes # (A) 2.5 k/uL (1.0-4.8); Lymphocytes % (A) 24 %; MCH 30.6 pg (25.0-35.0); MCHC 31.8 g/dL (31.0-37.0); MCV 96.2 fL (80.0-100.0); Mean Platelet Volume 8.1; Monocytes # (A) 0.4 k/uL (0-1.0); Monocytes % (A) 4 %; Neutrophils # (A) 6.9 k/uL (1.3-7.7); Neutrophils % (A) 67 %; Platelet Count 369 k/uL (150-450); RBC 5.13 m/uL (3.80-5.40); RDW 13.2 % (11.5-15.5); WBC 10.3 k/uL (3.8-10.6)
[2023-08-04] MEDS: METOCLOPRAMIDE 5 MG/ML 2 ML VIAL IVP STA (03:42)
[2023-08-04 05:05] LABS: Appearance,Urine Cloudy (Clear); Color,Urine Yellow
[2023-08-04 05:06] LABS: Bacteria,Urine Rare /hpf; Bilirubin,Urine Negative (Negative); Blood,Urine Negative (Negative); Calcium Oxalate Crystals,Urine Occasional /hpf; Glucose,Urine (UA) Negative (Negative); Hyaline Casts,Urine 7 /lpf (0-2); Ketones,Urine 3+ (Negative); Leukocyte Esterase,Urine Negative (Negative); Mucus,Urine Many /hpf; Nitrite,Urine Negative (Negative); Protein,Urine 1+ (Negative); Specific Gravity,Urine 1.029 (1.001-1.035); Squamous Epithelial Cell,Urine 9 /hpf (0-4); WBC,Urine 4 /hpf (0-5)
[2023-08-04] MEDS: droPERidol 5 MG/2 ML VIAL IVP ONE (05:58)
[2023-08-04] MEDS: TRIMETHOBENZAMIDE 100 MG/ML 2 ML VIAL IM STA (05:59)
[2023-08-04] MEDS: ONDANSETRON 4 MG ODT STARTER PACK 2 TAB BTL PO STA (06:10)
[2023-08-04] MEDS: ACETAMINOPHEN TAB 500 MG TAB PO STA (06:20)
[2023-08-04] MEDS: MECLIZINE 12.5 MG TAB PO STA (06:21)
[2023-08-04 07:12] VITALS: BP 120/76; PULSE 68; RESP 16
== END 2023-08-04 06:00 | disposition home or self-care (01) ==
LOC: EC 02:04
DX: R11.2 Nausea with vomiting, unspecified (principal); R10.84 Generalized abdominal pain; F17.200 Nicotine dependence, unspecified, uncomplicated; Z88.0 Allergy status to penicillin; Z88.5 Allergy status to narcotic agent; Z88.8 Allergy status to other drugs, medicaments and biological substances; Z91.011 Allergy to milk products
CPT/HCPCS: 36415; 80053; 82150; 83690; 85025; 81001; 81025; 87636; 99283; 96374; 96375 ×2; 96372; 96361; J2765; J3250; J3360; J2405; S0119

== ENCOUNTER 2023-08-06 21:28 | Observation (INO) | payer OTHER ==
--- NOTE | 2023-08-06 21:47 | ED ---
General Adult HPI - General Chief complaint: Nausea/Vomiting/Diarrhea Stated complaint: NVD Time Seen by Provider: 08/06/23 21:46 Source: patient, RN notes reviewed Mode of arrival: wheelchair Limitations: no limitations - History of Present Illness Initial comments: 43 year old female presents to the emergency department for evaluation of nausea, vomiting, pain in back and abdomen. Patient states that these symptoms started 4 days ago. She reports that she continues to have vomiting. She states that she has pain between her shoulder blades. She also reports pain in her right upper abdomen radiating to her back. She admits to chills. Reports normal bowel movements and passing flatulence. - Related Data Home Medications Medication Instructions Recorded Confirmed oxyCODONE-APAP 5-325MG [Percocet 1 each PO Q6HR PRN 10/15/13 10/12/18 5-325 mg] Acetaminophen [Tylenol Extra 1,000 mg PO Q6H PRN 10/08/18 10/08/18 Strength] Previous Rx's Medication Instructions Recorded Ondansetron Odt [Zofran Odt] 4 mg PO Q8HR PRN #20 tab 08/04/23 Allergies Allergy/AdvReac Type Severity Reaction Status Date / Time hydrocodone [From [place]] Allergy Itching Verified 08/06/23 21:33 Penicillins Allergy Unknown Verified 08/06/23 21:33 pregabalin [From Lyrica] Allergy "SEIZURE-LIKE Verified 08/06/23 21:33 ACTIVITY" gabapentin [From Neurontin] AdvReac DYSPHAGIA Verified 08/06/23 21:33 lorazepam [From Ativan] AdvReac Hallucinati Verified 08/06/23 21:33 ons Review of Systems ROS Statement: Those systems with pertinent positive or pertinent negative responses have been documented in the HPI. ROS Other: All systems not noted in ROS Statement are negative. Past Medical History Past Medical History: Fibromyalgia Additional Past Medical History / Comment(s): left shoulder pain History of Any Multi-Drug Resistant Organisms: None Reported Past Surgical History: Appendectomy, Tubal Ligation Past Anesthesia/Blood Transfusion Reactions: No Reported Reaction Past Psychological History: Anxiety, Bipolar, Depression Smoking Status: Current every day smoker Past Alcohol Use History: None Reported Past Drug Use History: None Reported - Past Family History Mother Family Medical History: No Reported History General Exam - General Exam Comments Initial Comments: Visual Physical Exam Vital signs reviewed General: Well-appearing, nontoxic, no acute distress. Head: Normocephalic, atraumatic Eyes: PERRLA, EOMI ENT: Airway patent Chest: Nonlabored breathing Skin: No visual rash, normal skin tone Neuro: Alert and oriented 3 Musculoskeletal: No gross abnormalities Limitations: no limitations General appearance: alert, in no apparent distress Head exam: Present: atraumatic, normocephalic, normal inspection Eye exam: Present: normal appearance, PERRL, EOMI. Absent: scleral icterus, con junctival injection, periorbital swelling ENT exam: Present: normal exam, mucous membranes moist Respiratory exam: Present: normal lung sounds bilaterally. Absent: respiratory distress, wheezes, rales, rhonchi, stridor Cardiovascular Exam: Present: regular rate, normal rhythm, normal heart sounds. Absent: systolic murmur, diastolic murmur, rubs, gallop, clicks GI/Abdominal exam: Present: soft, tenderness (RUQ, epigastric), normal bowel sounds. Absent: distended, guarding, rebound, rigid Extremities exam: Present: normal inspection, full ROM, normal capillary refill. Absent: tenderness, pedal edema, joint swelling, calf tenderness Neurological exam: Present: alert, oriented X3 Psychiatric exam: Present: normal affect, normal mood Skin exam: Present: warm, dry, intact, normal color. Absent: rash Course Vital Signs 08/06/23 08/07/23 08/07/23 21:30 02:05 03:26 Temperature 98.4 F Pulse Rate 59 L 61 59 L Respiratory 18 15 16 Rate Blood Pressure 128/84 112/68 114/68 O2 Sat by Pulse 98 98 96 Oximetry Medical Decision Making - Medical Decision Making Quick note preformed and electronically signed by Macrina Philippe PA-C Was pt. sent in by a medical professional or institution ([facility], [facility], urgent care, hospital, or penitentiary...) When possible be specific @ -No Did you speak to anyone other than the patient for history (EMS, parent, family, police, friend...)? What history was obtained from this source @ -No Did you review nursing and triage notes (agree or disagree)? Why? @ -I reviewed and agree with nursing and triage notes Were old charts reviewed (outside hosp., previous admission, EMS record, old EKG, old radiological studies, urgent care reports/EKG's, penitentiary records)? Report findings @ -No old charts were reviewed Differential Diagnosis (chest pain, altered mental status, abdominal pain women, abdominal pain men, vaginal bleeding, weakness, fever, dyspnea, syncope, headache, dizziness, GI bleed, back pain, seizure, CVA, palpatations, mental health, musculoskeletal)? @ -Differential Abdominal Pain Men: Appendicitis, cholecystitis, diverticulosis, ischemic bowel, pancreatitis, hepatitis, UTI, gastroenteritis, AAA, incarcerated hernia, bowel obstruction, constipation, inflammatory bowel, hepatitis, peptic ulcer disease, splenic infarction, perforated viscus, testicular torsion, this is not meant to be an all-inclusive list EKG interpreted by me (3pts min.). @ -None X-rays interpreted by me (1pt min.). @ -None done CT interpreted by me (1pt min.). @ -None done U/S interpreted by me (1pt. min.). @ -US gallbladder shows no evidence of acute cholecystitis What testing was considered but not performed or refused? (CT, X-rays, U/S, labs)? Why? @ -None What meds were considered but not given or refused? Why? @ -None Did you discuss the management of the patient with other professionals (professionals i.e. , PA, IRONER, lab, RT, psych nurse, neonatal social worker, blacksmith helper, teacher, global chief experience officer, supervisor case loading)? Give summary @ -Case discussed with [facility] Was smoking cessation discussed for >3mins.? @ -No Was critical care preformed (if so, how long)? @ -No Were there social determinants of health that impacted care today? How? (Homelessness, low income, unemployed, alcoholism, drug addiction, transportation, low edu. Level, literacy, decrease access to med. care, fpc, rehab)? @ -No Was there de-escalation of care discussed even if they declined (Discuss DNR or withdrawal of care, Hospice)? DNR status @ -No What co-morbidities impacted this encounter? (DM, HTN, Smoking, COPD, CAD, Cancer, CVA, ARF, Chemo, Hep., AIDS, mental health diagnosis, sleep apnea, morbid obesity)? @ -None Was patient admitted / discharged? Hospital course, mention meds given and route, prescriptions, significant lab abnormalities, going to OR and other pertinent info. @ -Admitted. Patient presented to the emergency department for evaluation of nausea and vomiting with abdominal pain x 4 days. She states that she has been unable to keep any fluids or food down.Laboratory studies significant for mild leukocytosis of 12.5; bilirubin 1.4, amylase 173, lipase 479; UA shows 3+ protein, 4+ ketones, increased urine specific gravity, amorphous sediment. Patient was provided 2 L of normal saline in the emergency department along with medication for pain and nausea control. Patient symptoms improved but still not tolerating p.o. intake. She will be admitted for intractable nausea and vomiting with maintenance fluids. Undiagnosed new problem with uncertain prognosis? @ -No Drug Therapy requiring intensive monitoring for toxicity (Heparin, Nitro, Insulin, Cardizem)? @ -No Were any procedures done? @ -No Diagnosis/symptom? @ -Intractable nausea vomiting Acute, or Chronic, or Acute on Chronic? @ -Acute Uncomplicated (without systemic symptoms) or Complicated (systemic symptoms)? @ -Uncomplicated Side effects of treatment? @ -No Exacerbation, Progression, or Severe Exacerbation? @ -No Poses a threat to life or bodily function? How? (Chest pain, USA, ID, pneumonia, PE, COPD, DKA, ARF, appy, cholecystitis, CVA, Diverticulitis, Homicidal, Suicidal, threat to staff... and all critical care pts) @ -No - Lab Data Result diagrams: 08/06/23 23:08 08/06/23 23:08 Lab Results 08/06/23 08/06/23 08/06/23 Range/Units 23:08 23:08 23:08 WBC 12.5 H (3.8-10.6) k/uL RBC 5.16 (3.80-5.40) m/uL Hgb 15.6 (11.4-16.0) gm/dL Hct 49.3 H (34.0-46.0) % MCV 95.5 (80.0-100.0) fL MCH 30.2 (25.0-35.0) pg MCHC 31.6 (31.0-37.0) g/dL RDW 12.7 (11.5-15.5) % Plt Count 326 (150-450) k/uL MPV 7.5 Neutrophils % 74 % Lymphocytes % 18 % Monocytes % 5 % Eosinophils % 1 % Basophils % 0 % Neutrophils # 9.3 H (1.3-7.7) k/uL Lymphocytes # 2.3 (1.0-4.8) k/uL Monocytes # 0.7 (0-1.0) k/uL Eosinophils # 0.1 (0-0.7) k/uL Basophils # 0.1 (0-0.2) k/uL Sodium 138 (137-145) mmol/L Potassium 3.8 (3.5-5.1) mmol/L Chloride 92 L (98-107) mmol/L Carbon Dioxide 30 (22-30) mmol/L Anion Gap 16 mmol/L BUN 24 H (7-17) mg/dL Creatinine 0.75 (0.52-1.04) mg/dL Est GFR (CKD-EPI)AfAm >90 (>60 ml/min/1.73 sqM) Est GFR (CKD-EPI)NonAf >90 (>60 ml/min/1.73 sqM) Glucose 76 (74-99) mg/dL Plasma Lactic Acid Jj 1.1 (0.7-2.0) mmol/L Calcium 10.3 H (8.4-10.2) mg/dL Total Bilirubin 1.4 H (0.2-1.3) mg/dL AST 40 H (14-36) U/L ALT 20 (4-34) U/L Alkaline Phosphatase 102 (38-126) U/L Total Protein 8.7 H (6.3-8.2) g/dL Albumin 5.3 H (3.5-5.0) g/dL Amylase 173 H (30-110) U/L Lipase 479 H (23-300) U/L Urine Color Urine Appearance (Clear) Urine pH (5.0-8.0) Ur Specific [place] (1.001-1.035) Urine Protein (Negative) Urine Glucose (UA) (Negative) Urine Ketones (Negative) Urine Blood (Negative) Urine Nitrite (Negative) Urine Bilirubin (Negative) Urine Urobilinogen (<2.0) mg/dL Ur Leukocyte Esterase (Negative) Urine RBC (0-5) /hpf Urine WBC (0-5) /hpf Ur Squamous Epith Cells (0-4) /hpf Amorphous Sediment (None) /hpf Urine Bacteria (None) /hpf Hyaline Casts (0-2) /lpf Urine Mucus (None) /hpf 08/06/23 Range/Units 23:19 WBC (3.8-10.6) k/uL RBC (3.80-5.40) m/uL Hgb (11.4-16.0) gm/dL Hct (34.0-46.0) % MCV (80.0-100.0) fL MCH (25.0-35.0) pg MCHC (31.0-37.0) g/dL RDW (11.5-15.5) % Plt Count (150-450) k/uL MPV Neutrophils % % Lymphocytes % % Monocytes % % Eosinophils % % Basophils % % Neutrophils # (1.3-7.7) k/uL Lymphocytes # (1.0-4.8) k/uL Monocytes # (0-1.0) k/uL Eosinophils # (0-0.7) k/uL Basophils # (0-0.2) k/uL Sodium (137-145) mmol/L Potassium (3.5-5.1) mmol/L Chloride (98-107) mmol/L Carbon Dioxide (22-30) mmol/L Anion Gap mmol/L BUN (7-17) mg/dL Creatinine (0.52-1.04) mg/dL Est GFR (CKD-EPI)AfAm (>60 ml/min/1.73 sqM) Est GFR (CKD-EPI)NonAf (>60 ml/min/1.73 sqM) Glucose (74-99) mg/dL Plasma Lactic Acid Jj (0.7-2.0) mmol/L Calcium (8.4-10.2) mg/dL Total Bilirubin (0.2-1.3) mg/dL AST (14-36) U/L ALT (4-34) U/L Alkaline Phosphatase (38-126) U/L Total Protein (6.3-8.2) g/dL Albumin (3.5-5.0) g/dL Amylase (30-110) U/L Lipase (23-300) U/L Urine Color Yellow Urine Appearance Cloudy H (Clear) Urine pH 6.0 (5.0-8.0) Ur Specific [place] 1.036 H (1.001-1.035) Urine Protein 3+ H (Negative) Urine Glucose (UA) Negative (Negative) Urine Ketones 4+ H (Negative) Urine Blood Moderate H (Negative) Urine Nitrite Negative (Negative) Urine Bilirubin 1+ H (Negative) Urine Urobilinogen 4.0 (<2.0) mg/dL Ur Leukocyte Esterase Negative (Negative) Urine RBC 5 (0-5) /hpf Urine WBC 16 H (0-5) /hpf Ur Squamous Epith Cells 9 H (0-4) /hpf Amorphous Sediment Occasional H (None) /hpf Urine Bacteria Occasional H (None) /hpf Hyaline Casts 5 H (0-2) /lpf Urine Mucus Many H (None) /hpf Disposition Clinical Impression: Abdominal pain, Intractable nausea and vomiting Disposition: ADMITTED IP TO THIS [facility] Condition: Stable Is patient prescribed a controlled substance at d/c from ED?: No
[2023-08-06] MEDS: ONDANSETRON 4 MG/2 ML VIAL IVP STA (23:18)
[2023-08-06] MEDS: SODIUM CHLORIDE 0.9% 2,000 ML IV ONE (23:19)
[2023-08-06 23:26] LABS: Basophils # (A) 0.1 k/uL (0-0.2); Basophils % (A) 0 %; Eosinophils # (A) 0.1 k/uL (0-0.7); Eosinophils % (A) 1 %; HCT 49.3 % (34.0-46.0); HGB 15.6 gm/dL (11.4-16.0); Lymphocytes # (A) 2.3 k/uL (1.0-4.8); Lymphocytes % (A) 18 %; MCH 30.2 pg (25.0-35.0); MCHC 31.6 g/dL (31.0-37.0); MCV 95.5 fL (80.0-100.0); Mean Platelet Volume 7.5; Monocytes # (A) 0.7 k/uL (0-1.0); Monocytes % (A) 5 %; Neutrophils # (A) 9.3 k/uL (1.3-7.7); Neutrophils % (A) 74 %; Platelet Count 326 k/uL (150-450); RBC 5.16 m/uL (3.80-5.40); RDW 12.7 % (11.5-15.5); WBC 12.5 k/uL (3.8-10.6)
[2023-08-06 23:42] LABS: ALT 20 U/L (4-34); African American GFR (CKD) >90 (>60 ml/min/1.73 sqM); Albumin 5.3 g/dL (3.5-5.0); Amylase 173 U/L (30-110); Anion Gap 16 mmol/L; Blood Urea Nitrogen 24 mg/dL (7-17); Calcium 10.3 mg/dL (8.4-10.2); Carbon Dioxide 30 mmol/L (22-30); Chloride 92 mmol/L (98-107); Glucose 76 mg/dL (74-99); Lipase 479 U/L (23-300); Non-African American GFR(CKD) >90 (>60 ml/min/1.73 sqM); Sodium 138 mmol/L (137-145); Total Bilirubin 1.4 mg/dL (0.2-1.3); Total Protein 8.7 g/dL (6.3-8.2)
[2023-08-06 23:47] LABS: Amorphous Sediment,Urine Occasional /hpf; Appearance,Urine Cloudy (Clear); Bacteria,Urine Occasional /hpf; Bilirubin,Urine 1+ (Negative); Blood,Urine Moderate (Negative); Color,Urine Yellow; Glucose,Urine (UA) Negative (Negative); Hyaline Casts,Urine 5 /lpf (0-2); Ketones,Urine 4+ (Negative); Leukocyte Esterase,Urine Negative (Negative); Mucus,Urine Many /hpf; Nitrite,Urine Negative (Negative); Protein,Urine 3+ (Negative); RBC,Urine 5 /hpf (0-5); Specific Gravity,Urine 1.036 (1.001-1.035); Squamous Epithelial Cell,Urine 9 /hpf (0-4); WBC,Urine 16 /hpf (0-5)
[2023-08-06 23:52] LABS: AST 40 U/L (14-36); Alkaline Phosphatase 102 U/L (38-126); Potassium 3.8 mmol/L (3.5-5.1)
[2023-08-07] MEDS: HYDROmorphone 1 MG/ML 1 ML SYRINGE IVP STA (00:26)
--- NOTE | 2023-08-07 01:46 | US ---
EXAM: US Abdomen Limited, Gallbladder CLINICAL HISTORY: ITS.REASON US Reason: pain, n/v TECHNIQUE: Real-time ultrasound of the right upper quadrant with image documentation. COMPARISON: Ultrasound: 08/29/2010 FINDINGS: Gallbladder: Normal bladder wall thickness: 2 mm. No gallstones. No pericholecystic fluid. Reportedly negative sonographic Michaud sign. Common bile duct: Unremarkable as visualized. No dilation. CBD: 4 mm in diameter. Pancreas: Unremarkable as visualized. Pancreatic tail is obscured by bowel gas. Other findings: The liver length: 13.4 cm. Homogeneous in echotexture. There is a 2.4 x 1.6 x 2.3 cm avascular hyperechoic area seen laterally in the left hepatic lobe. Right kidney measures 8.8 x 3.8 x 5.0 cm in size. A 6.2 mm echogenic focus in the superior pole, likely a nonobstructive calculus. No hydronephrosis. IMPRESSION: Negative gallbladder exam. Normal CBD. A 2.4 x 1.6 x 2.3 cm avascular hyperechoic area is seen in the left hepatic lobe laterally, likely new since prior comparison, most likely benign. Dedicated contrast liver CT/MRI exam would be confirmatory. A 6.2 mm nonobstructive right kidney calculus. No hydronephrosis. .
[2023-08-07] MEDS: ONDANSETRON 4 MG/2 ML VIAL IVP STA (02:34)
[2023-08-07] MEDS ORDERED: ACETAMINOPHEN TAB 325 MG TAB PO PRN (02:46)
[2023-08-07] MEDS ORDERED: NALOXONE 0.4 MG/ML 1 ML VIAL IV PRN (02:46)
[2023-08-07] MEDS ORDERED: HYDROmorphone 0.5 MG/0.5 ML SYRINGE IVP PRN (02:46)
[2023-08-07] MEDS: SODIUM CHLORIDE 0.9% 1,000 ML IV SCH (03:25)
[2023-08-07] MEDS: HYDROmorphone 1 MG/ML 1 ML SYRINGE IVP PRN (05:26)
[2023-08-07] MEDS: KETOROLAC 15 MG/ML 1 ML VIAL IVP PRN (07:24)
[2023-08-07] MEDS: ONDANSETRON 4 MG/2 ML VIAL IVP PRN (07:24)
[2023-08-07] MEDS: HEPARIN SODIUM,PORCINE 5,000 UNIT/ML 1 ML VIAL SQ SCH (17:18)
--- NOTE | 2023-08-08 00:41 | P.HPIM ---
History of Present Illness H&P Date: 08/07/23 Chief Complaint: Nausea and vomiting Patient is a 43-year-old female with a past medical history of fibromyalgia, anxiety/depression bipolar disorder and currently with a smoking and marijuana use presents to ER with complaints of nausea vomiting and unable to tolerate oral diet. Patient was also complaining of abdominal pain mainly in the epigastric region and right upper abdomen. She has been having symptoms for the past 4 days. Was also complaining of pain between her shoulder blades. She was also complaining of chills. No complaints of diarrhea. Dysuria. No cough or sputum production. Ultrasound gallbladder showed negative gallbladder exam. 2.4 x 1.6 x 2.3 cm avascular hyperechoic area ASCVD left hepatic lobe laterally likely new since prior comparison most likely benign. Dedicated contrast liver CT or MRI exam would be confirmatory. Laboratory pressure lipase level 479 amylase 173, total bili 1.4 AST 40 ALT 28 alk phos 102 Urinalysis is cloudy with 3+ protein 4+ glucose leukocyte esterase negative RBCs 5 WBC 16 and squamous cell details L-spine WBC 12.1 hemoglobin 15.6 and platelets 326 Sodium 138 potassium 3.8 chloride 92 bicarb is 30 BUN 24 and creatinine 0.75 calcium 10.3 Review of Systems Constitutional: Patient denies any fever or chills . No generalized weakness or weight loss. Abdomen: Nausea vomiting and abdominal pain. No diarrhea. Cardiovascular: Patient denies any chest pain or short of breath no palpitations. Respiratory: patient denied any cough or sputum production. No shortness of breath Neurologic: Patient denied any numbness or tingling. no headache. Musculoskeletal: Patient denies any complaints of joint swelling or deformity. Skin: Negative Psychiatric: Negative Endocrine: No heat or cold intolerance. No recent weight gain. Genitourinary: No dysuria or hematuria. All other 14 point ROS negative except the above Past Medical History Past Medical History: Fibromyalgia Additional Past Medical History / Comment(s): left shoulder pain History of Any Multi-Drug Resistant Organisms: None Reported Past Surgical History: Appendectomy, Tubal Ligation Past Anesthesia/Blood Transfusion Reactions: No Reported Reaction Past Psychological History: Anxiety, Bipolar, Depression Smoking Status: Current every day smoker Past Alcohol Use History: None Reported Past Drug Use History: None Reported - Past Family History Mother Family Medical History: No Reported History Father Family Medical History: Myocardial Infarction ([place]) Medications and Allergies Home Medications Medication Instructions Recorded Confirmed Type oxyCODONE-APAP 5-325MG [Percocet 1 tab PO Q6HR PRN 10/15/13 08/07/23 History 5-325 mg] L.acidoph,Paracasei, B.lactis 1 cap PO PC-BRKFST 08/07/23 08/07/23 History [Probiotic] Magnesium Oxide [Magnesium] 500 mg PO PC-BRKFST 08/07/23 08/07/23 History Sertraline [Zoloft] 100 mg PO HS 08/07/23 08/07/23 History Allergies Allergy/AdvReac Type Severity Reaction Status Date / Time hydrocodone [From [place]] Allergy Itching Verified 08/07/23 08:11 Milk Containing Products Allergy Unknown Verified 08/07/23 08:14 (Dairy) [Dairy] Penicillins Allergy Unknown Verified 08/07/23 08:11 Childhood pregabalin [From Lyrica] Allergy "SEIZURE-LIKE Verified 08/07/23 08:11 ACTIVITY" gabapentin [From Neurontin] AdvReac DYSPHAGIA Verified 08/07/23 08:11 lorazepam [From Ativan] AdvReac Hallucinati Verified 08/07/23 08:11 ons Physical Exam Vitals: Vital Signs Temp Pulse Resp BP Pulse Ox 08/07/23 05:32 70 16 130/79 98 08/07/23 03:26 59 L 16 114/68 96 08/07/23 02:05 61 15 112/68 98 08/06/23 21:30 98.4 F 59 L 18 128/84 98 Intake and Output 08/06/23 08/07/23 08/07/23 22:59 06:59 14:59 Other: Voiding Method Toilet Weight 68.039 kg PHYSICAL EXAMINATION: Patient is lying in the bed comfortably, no acute distress, awake alert and oriented.. HEENT: Normocephalic. Neck is supple. Pupils reactive. Nostrils clear. Oral cavity is moist. Neck reveals no JVD, carotid bruits, or thyromegaly. CHEST EXAMINATION: Trachea is central. Symmetrical expansion. Lung adams clear to auscultation and percussion. CARDIAC: Normal S1, S2 with no gallops. No murmurs ABDOMEN: Soft. Bowel sounds present, mild epigastric tenderness.. No organomegaly. No abdominal bruits. Extremities: reveal no edema. No clubbing or cyanosis Neurologically awake, alert, oriented x3 with well-coordinated movements. No focal deficits noted Skin: No rash or skin lesions. Psychiatric: Coperative. Nonsuicidal anxious. Musculoskeletal: No joint swelling or deformity. Normal range of motion. Results CBC & Chem 7: 08/06/23 23:08 08/06/23 23:08 Labs: Abnormal Lab Results - Last 24 Hours (Table) 08/06/23 08/06/23 08/06/23 Range/Units 23:08 23:08 23:19 WBC 12.5 H (3.8-10.6) k/uL Hct 49.3 H (34.0-46.0) % Neutrophils # 9.3 H (1.3-7.7) k/uL Chloride 92 L (98-107) mmol/L BUN 24 H (7-17) mg/dL Calcium 10.3 H (8.4-10.2) mg/dL Total Bilirubin 1.4 H (0.2-1.3) mg/dL AST 40 H (14-36) U/L Total Protein 8.7 H (6.3-8.2) g/dL Albumin 5.3 H (3.5-5.0) g/dL Amylase 173 H (30-110) U/L Lipase 479 H (23-300) U/L Urine Appearance Cloudy H (Clear) Ur Specific [place] 1.036 H (1.001-1.035) Urine Protein 3+ H (Negative) Urine Ketones 4+ H (Negative) Urine Blood Moderate H (Negative) Urine Bilirubin 1+ H (Negative) Urine WBC 16 H (0-5) /hpf Ur Squamous Epith Cells 9 H (0-4) /hpf Amorphous Sediment Occasional H (None) /hpf Urine Bacteria Occasional H (None) /hpf Hyaline Casts 5 H (0-2) /lpf Urine Mucus Many H (None) /hpf Thrombosis Risk Factor Assmnt - DVT/VTE Prophylaxis DVT/VTE Prophylaxis: Pharmacologic Prophylaxis ordered Assessment and Plan Assessment: Intractable nausea and vomiting and abdominal pain Marijuana use and possible cyclic vomiting syndrome Dehydration and volume depletion Mild acute pancreatitis with lipase level 479 Abnormal urine sample Fibromyalgia Currently related smoking Anxiety/depression bipolar disorder GI and DVT prophylaxis with Pepcid and heparin subcu Plan: Patient will be continued on IV hydration with normal saline. Current pain current pain management with Dilaudid. Continue symptomatic management with Zofran for nausea and vomiting and follow-up closely. Marijuana cessation has been counseled extensively. Patient states that she uses marijuana for fibromyalgia. Time with Patient: Greater than 30
[2023-08-08] MEDS: FAMOTIDINE 20 MG/2 ML VIAL IV SCH (00:54)
[2023-08-08 07:54] LABS: ALT 13 U/L (4-34); AST 24 U/L (14-36); African American GFR (CKD) >90 (>60 ml/min/1.73 sqM); Albumin 3.4 g/dL (3.5-5.0); Albumin/Globulin Ratio 1.6; Alkaline Phosphatase 63 U/L (38-126); Anion Gap 5 mmol/L; Blood Urea Nitrogen 13 mg/dL (7-17); Calcium 8.5 mg/dL (8.4-10.2); Carbon Dioxide 25 mmol/L (22-30); Chloride 106 mmol/L (98-107); Globulin 2.1 g/dL; Glucose 71 mg/dL (74-99); Lipase 73 U/L (23-300); Non-African American GFR(CKD) >90 (>60 ml/min/1.73 sqM); Potassium 3.1 mmol/L (3.5-5.1); Sodium 136 mmol/L (137-145); Total Bilirubin 0.7 mg/dL (0.2-1.3); Total Protein 5.5 g/dL (6.3-8.2)
[2023-08-08 10:30] LABS: HCT 35.4 % (37.2-46.3); HGB 11.6 g/dL (12.0-15.0); MCH 30.6 pg (27.0-32.0); MCHC 32.8 g/dL (32.0-37.0); MCV 93.4 FL (80.0-97.0); RBC 3.79 X 10*6/uL (4.10-5.20); WBC 7.68 X 10*3/uL (4.50-10.00)
[2023-08-08 10:31] LABS: Basophils # (A) 0.02 X 10*3/uL (0.00-0.10); Basophils % (A) 0.3 %; Eosinophils # (A) 0.05 X 10*3/uL (0.04-0.35); Eosinophils % (A) 0.7 %; Lymphocytes # (A) 2.27 X 10*3/uL (0.90-5.00); Lymphocytes % (A) 29.6 %; Mean Platelet Volume 10.2 FL (9.5-12.2); Monocytes # (A) 0.51 X 10*3/uL (0.20-1.00); Monocytes % (A) 6.6 %; NRBC Per 100 WBC 0 X 10*3/uL (0.00-0.01); Neutrophils # (A) 4.79 X 10*3/uL (1.80-7.70); Neutrophils % (A) 62.3 %; Platelet Count 256 X 10*3/uL (140-440); RDW 12.8 % (11.5-14.5)
[2023-08-08] MEDS: POTASSIUM CHLORIDE ER 20 MEQ TAB.ER PO STA (14:06)
[2023-08-08] MEDS: POTASSIUM CHLORIDE 10 MEQ in WATER FOR INJECTION 1 100ML.BAG IVPB SCH (14:06)
[2023-08-09 11:04] LABS: BUN/Creat Ratio 7.43 Ratio (12.00-20.00); Blood Urea Nitrogen 5.2 mg/dL (9.0-27.0); Calcium 8.8 mg/dL (8.7-10.3); Carbon Dioxide 24.5 mmol/L (21.6-31.8); Chloride 104 mmol/L (96-109); Glucose 78 mg/dL (70-110); Potassium 3.8 mmol/L (3.5-5.5); Sodium 141 mmol/L (135-145)
[2023-08-09] MEDS: METOCLOPRAMIDE 5 MG/ML 2 ML VIAL IVP STA (14:41)
[2023-08-09 14:49] LABS: Basophils % (A) 1 %; Eosinophils # (A) 0.2 k/uL (0-0.7); Eosinophils % (A) 3 %; HCT 40.5 % (34.0-46.0); HGB 12.7 gm/dL (11.4-16.0); Lymphocytes # (A) 2.1 k/uL (1.0-4.8); Lymphocytes % (A) 30 %; MCH 30.6 pg (25.0-35.0); MCHC 31.4 g/dL (31.0-37.0); MCV 97.3 fL (80.0-100.0); Mean Platelet Volume 7.3; Monocytes # (A) 0.3 k/uL (0-1.0); Monocytes % (A) 4 %; Neutrophils # (A) 4.3 k/uL (1.3-7.7); Neutrophils % (A) 61 %; Platelet Count 265 k/uL (150-450); RBC 4.17 m/uL (3.80-5.40); RDW 12.7 % (11.5-15.5); WBC 7.1 k/uL (3.8-10.6)
[2023-08-09] MEDS: SODIUM CHLORIDE 0.9% 1,000 ML IV SCH (15:33)
--- NOTE | 2023-08-10 01:13 | P.PN ---
Subjective Progress Note Date: 08/08/23 Patient is a 43-year-old female with a past medical history of fibromyalgia, anxiety/depression bipolar disorder and currently with a smoking and marijuana use presents to ER with complaints of nausea vomiting and unable to tolerate oral diet. Patient was also complaining of abdominal pain mainly in the epigastric region and right upper abdomen. She has been having symptoms for the past 4 days. Was also complaining of pain between her shoulder blades. She was also complaining of chills. No complaints of diarrhea. Dysuria. No cough or sputum production. Ultrasound gallbladder showed negative gallbladder exam. 2.4 x 1.6 x 2.3 cm avascular hyperechoic area ASCVD left hepatic lobe laterally likely new since prior comparison most likely benign. Dedicated contrast liver CT or MRI exam would be confirmatory. Laboratory pressure lipase level 479 amylase 173, total bili 1.4 AST 40 ALT 28 alk phos 102 Urinalysis is cloudy with 3+ protein 4+ glucose leukocyte esterase negative RBCs 5 WBC 16 and squamous cell details L-spine WBC 12.1 hemoglobin 15.6 and platelets 326 Sodium 138 potassium 3.8 chloride 92 bicarb is 30 BUN 24 and creatinine 0.75 calcium 10.3 08/08/2023 Patient is lying in the bed. Awake alert and oriented. Currently on room air. Patient states that her abdominal pain is better. Would like to take oral intake. No complaints of chest pain or shortness of breath. Patient has been afebrile. Otherwise laboratory data showed WBC improved to 7.6 hemoglobin 11.6 and platelets 256 Sodium 136 potassium 3.1 chloride 106 bicarb is 106 BUN 13 and creatinine 0.54 and blood sugar 71 total bili improved to 0.7 liver enzymes are normalized today. Albumin 3.4 and lipase level came down to 73. Current medications reviewed. Objective - Vital Signs Vital signs: Vital Signs Temp 98.5 F 08/08/23 19:11 Pulse 73 08/08/23 19:11 Resp 15 08/08/23 19:11 BP 135/80 08/08/23 19:11 Pulse Ox 97 08/08/23 19:11 FiO2 Intake & Output 08/08/23 08/08/23 08/09/23 06:59 18:59 06:59 Intake Total 0 Balance 0 Intake: Oral 0 Other: Voiding Method Toilet # Voids 2 1 - Exam PHYSICAL EXAMINATION: Patient is lying in the bed comfortably, no acute distress, awake alert and oriented.. HEENT: Normocephalic. Neck is supple. Pupils reactive. Nostrils clear. Oral cavity is moist. Neck reveals no JVD, carotid bruits, or thyromegaly. CHEST EXAMINATION: Trachea is central. Symmetrical expansion. Lung adams clear to auscultation and percussion. CARDIAC: Normal S1, S2 with no gallops. No murmurs ABDOMEN: Soft. Bowel sounds present. Nontender. l. No organomegaly. No abdominal bruits. Extremities: reveal no edema. No clubbing or cyanosis Neurologically awake, alert, oriented x3 with well-coordinated movements. No focal deficits noted Skin: No rash or skin lesions. Psychiatric: Coperative. Nonsuicidal Musculoskeletal: No joint swelling or deformity. Normal range of motion. - Labs CBC & Chem 7: 08/09/23 14:40 08/09/23 04:30 Labs: Abnormal Lab Results - Last 24 Hours (Table) 08/08/23 08/08/23 Range/Units 06:08 06:08 RBC 3.79 L (4.10-5.20) X 10*6/uL Hgb 11.6 L (12.0-15.0) g/dL Hct 35.4 L (37.2-46.3) % Sodium 136 L (137-145) mmol/L Potassium 3.1 L (3.5-5.1) mmol/L Glucose 71 L (74-99) mg/dL Total Protein 5.5 L (6.3-8.2) g/dL Albumin 3.4 L (3.5-5.0) g/dL Assessment and Plan Assessment: Intractable nausea and vomiting and abdominal pain. Improving. Marijuana use and possible cyclic vomiting syndrome Dehydration and volume depletion Mild acute pancreatitis with lipase level 479 Abnormal urine sample Fibromyalgia Currently related smoking Anxiety/depression bipolar disorder GI and DVT prophylaxis with Pepcid and heparin subcu Plan: Patient will be continued on IV hydration with normal saline. Current pain current pain management with Dilaudid. Continue symptomatic management with Zofran for nausea and vomiting and follow-up closely. Patient was initially nothing by mouth. Will start on soft diet and advance as tolerated. Follow-up H&H. Marijuana cessation has been counseled extensively. Patient states that she u ses marijuana for fibromyalgia. Time with Patient: Greater than 30
--- NOTE | 2023-08-10 01:16 | P.PN ---
Subjective Progress Note Date: 08/09/23 Patient is a 43-year-old female with a past medical history of fibromyalgia, anxiety/depression bipolar disorder and currently with a smoking and marijuana use presents to ER with complaints of nausea vomiting and unable to tolerate oral diet. Patient was also complaining of abdominal pain mainly in the epigastric region and right upper abdomen. She has been having symptoms for the past 4 days. Was also complaining of pain between her shoulder blades. She was also complaining of chills. No complaints of diarrhea. Dysuria. No cough or sputum production. Ultrasound gallbladder showed negative gallbladder exam. 2.4 x 1.6 x 2.3 cm avascular hyperechoic area ASCVD left hepatic lobe laterally likely new since prior comparison most likely benign. Dedicated contrast liver CT or MRI exam would be confirmatory. Laboratory pressure lipase level 479 amylase 173, total bili 1.4 AST 40 ALT 28 alk phos 102 Urinalysis is cloudy with 3+ protein 4+ glucose leukocyte esterase negative RBCs 5 WBC 16 and squamous cell details L-spine WBC 12.1 hemoglobin 15.6 and platelets 326 Sodium 138 potassium 3.8 chloride 92 bicarb is 30 BUN 24 and creatinine 0.75 calcium 10.3 08/08/2023 Patient is lying in the bed. Awake alert and oriented. Currently on room air. Patient states that her abdominal pain is better. Would like to take oral intake. No complaints of chest pain or shortness of breath. Patient has been afebrile. Otherwise laboratory data showed WBC improved to 7.6 hemoglobin 11.6 and platelets 256 Sodium 136 potassium 3.1 chloride 106 bicarb is 106 BUN 13 and creatinine 0.54 and blood sugar 71 total bili improved to 0.7 liver enzymes are normalized today. Albumin 3.4 and lipase level came down to 73. 08/09/2023 Patient is sitting in the bed. Awake alert and oriented. Complains of epigastric and right upper quadrant abdominal pain and radiating to the back. Also patient states that she is unable to tolerate oral diet and is still having nausea. Patient has been afebrile otherwise. Laboratory data showed WBC 7.1 hemoglobin improved to 12.7 today. Platelet 265. Sodium 141 potassium improved to 3.8, BUN 5.20 creatinine 0.7 and blood sugar 78 and calcium 8.8. Follow-up repeat CBC and CMP tomorrow and if abnormal will consult GI for further evaluation. Otherwise anticipate discharge in next 24 hours. Current medications reviewed. Objective - Vital Signs Vital signs: Vital Signs Temp 98.4 F 08/09/23 07:10 Pulse 55 L 08/09/23 07:10 Resp 16 08/09/23 07:10 BP 117/73 08/09/23 07:10 Pulse Ox 98 08/09/23 07:10 FiO2 Intake & Output 08/08/23 08/09/23 08/09/23 18:59 06:59 18:59 Intake Total 0 Balance 0 Intake: Oral 0 Other: Voiding Method Toilet Toilet # Voids 1 3 - Exam PHYSICAL EXAMINATION: Patient is lying in the bed comfortably, no acute distress, awake alert and oriented.. HEENT: Normocephalic. Neck is supple. Pupils reactive. Nostrils clear. Oral cavity is moist. Neck reveals no JVD, carotid bruits, or thyromegaly. CHEST EXAMINATION: Trachea is central. Symmetrical expansion. Lung adams clear to auscultation and percussion. CARDIAC: Normal S1, S2 with no gallops. No murmurs ABDOMEN: Soft. Bowel sounds present. Mild right upper quadrant tenderness. No organomegaly. No abdominal bruits. Extremities: reveal no edema. No clubbing or cyanosis Neurologically awake, alert, oriented x3 with well-coordinated movements. No focal deficits noted Skin: No rash or skin lesions. Psychiatric: Coperative. Nonsuicidal Musculoskeletal: No joint swelling or deformity. Normal range of motion. - Labs CBC & Chem 7: 08/09/23 14:40 08/09/23 04:30 Labs: Abnormal Lab Results - Last 24 Hours (Table) 08/09/23 Range/Units 04:30 Anion Gap 12.50 H (4.00-12.00) mmol/L BUN 5.2 L (9.0-27.0) mg/dL BUN/Creatinine Ratio 7.43 L (12.00-20.00) Ratio Assessment and Plan Assessment: Intractable nausea and vomiting and abdominal pain. Improving. Marijuana use and possible cyclic vomiting syndrome Dehydration and volume depletion. Improved Elevated LFTs. normalizing now. Mild acute pancreatitis with lipase level 479 Abnormal urine sample Fibromyalgia Currently related smoking Anxiety/depression bipolar disorder GI and DVT prophylaxis with Pepcid and heparin subcu Plan: Patient will be continued on IV hydration with normal saline. Current pain current pain management with Dilaudid. Continue symptomatic management with Zofran for nausea and vomiting and follow-up closely. Patient will be changed back to soft diet. Follow-up CBC and CMP tomorrow. IV fluid reduced to 75 cc s per hour. Encourage incentive spirometry. Anticipate discharge in next 24 hours. If CMP is abnormal will consult GI for further evaluation. Discussed with the patient in detail. Marijuana cessation has been counseled extensively. Patient states that she uses marijuana for fibromyalgia. Time with Patient: Greater than 30
[2023-08-10 07:53] VITALS: BP 145/88; RESP 15; TEMP 98.9
[2023-08-10 10:20] LABS: Basophils # (A) 0.04 X 10*3/uL (0.00-0.10); Basophils % (A) 0.6 %; Eosinophils # (A) 0.25 X 10*3/uL (0.04-0.35); Eosinophils % (A) 3.5 %; HCT 34.8 % (37.2-46.3); HGB 11.6 g/dL (12.0-15.0); Lymphocytes # (A) 3.02 X 10*3/uL (0.90-5.00); Lymphocytes % (A) 42.6 %; MCH 31.1 pg (27.0-32.0); MCHC 33.3 g/dL (32.0-37.0); MCV 93.3 FL (80.0-97.0); Mean Platelet Volume 10.4 FL (9.5-12.2); Monocytes # (A) 0.47 X 10*3/uL (0.20-1.00); Monocytes % (A) 6.6 %; NRBC Per 100 WBC 0 X 10*3/uL (0.00-0.01); Neutrophils % (A) 46.6 %; Platelet Count 251 X 10*3/uL (140-440); RBC 3.73 X 10*6/uL (4.10-5.20); RDW 12.5 % (11.5-14.5); WBC 7.09 X 10*3/uL (4.50-10.00)
[2023-08-10 10:31] LABS: ALT 13 U/L (8-44); AST 17 U/L (13-35); Albumin 3.7 g/dL (3.8-4.9); Albumin/Globulin Ratio 2.18 Ratio (1.60-3.17); Alkaline Phosphatase 55 U/L (41-126); Blood Urea Nitrogen 4.5 mg/dL (9.0-27.0); Calcium 8.6 mg/dL (8.7-10.3); Carbon Dioxide 24.3 mmol/L (21.6-31.8); Chloride 104 mmol/L (96-109); Globulin 1.7 g/dL (1.6-3.3); Glucose 84 mg/dL (70-110); Potassium 3.5 mmol/L (3.5-5.5); Sodium 142 mmol/L (135-145); Total Bilirubin 0.7 mg/dL (0.3-1.2); Total Protein 5.4 g/dL (6.2-8.2)
[2023-08-10 10:47] VITALS: PULSE 51
[2023-08-10] MEDS: POTASSIUM CHLORIDE ER 20 MEQ TAB.ER PO STA (14:34)
--- NOTE | 2023-08-10 15:09 | P.DS ---
Providers Date of admission: 08/07/23 04:30 Expected date of discharge: 08/10/23 Attending physician: Isaiah Youssef MD Consults: 08/09/23 17:13 Consult Physician Routine Consulting Provider: Rafaela Walters Consult Reason/Comments: Abdominal Pain Do you want consulting provider notified?: Yes Primary care physician: Stacy Nunez [facility] Course: Final Diagnoses: Intractable nausea and vomiting and abdominal pain, improved Marijuana use and possible cyclic vomiting syndrome Dehydration and volume depletion. Improved Elevated LFTs. normalized now. Mild acute pancreatitis with lipase level 479, normalized with hydration Abnormal urine sample Fibromyalgia Daily nicotine dependence Anxiety/depression bipolar disorder Hospital course: Patient is a 43-year-old female with a past medical history of fibromyalgia, anxiety/depression bipolar disorder and currently with a smoking and marijuana use presents to ER with complaints of nausea vomiting and unable to tolerate oral diet. Patient was also complaining of abdominal pain mainly in the epigastric region and right upper abdomen. She has been having symptoms for the past 4 days. Was also complaining of pain between her shoulder blades. She was also complaining of chills. No complaints of diarrhea. Dysuria. No cough or sputum production. Ultrasound gallbladder showed negative gallbladder exam. 2.4 x 1.6 x 2.3 cm avascular hyperechoic area ASCVD left hepatic lobe laterally likely new since prior comparison most likely benign. Dedicated contrast liver CT or MRI exam would be confirmatory. Laboratory pressure lipase level 479 amylase 173, total bili 1.4 AST 40 ALT 28 alk phos 102 Urinalysis is cloudy with 3+ protein 4+ glucose leukocyte esterase negative RBCs 5 WBC 16 and squamous cell details L-spine WBC 12.1 hemoglobin 15.6 and platelets 326 Sodium 138 potassium 3.8 chloride 92 bicarb is 30 BUN 24 and creatinine 0.75 calcium 10.3 Maintained on IV fluid hydration, Pepcid, Zofran and pain management with significant clinical improvement. Consuming 50 to 75% of meals .reports nausea has subsided, mild queasiness earlier this morning. Denies abdominal pain .received pain medication for her fibromyalgia. Reports she has Zofran at home. Nicotine and marijuana cessation reinforced. Denies chest pain, palpitations or shortness of breath. Denies lightheadedness, dizziness or focal deficits. No GI onsite today. Patient will be discharged home today in a stable condition with guarded prognosis. Appointment with GI will be arranged prior to discharge. The impression and plan of care has been dictated as directed. : I performed a history and examination of this patient, discussed the same with the dictator. I agree with the dictator's note ,documented as a scribe. Any additional findings or plans will be noted. Patient Condition at Discharge: Stable Plan - Discharge Summary Discharge Rx Participant: Yes New Discharge Prescriptions: New Famotidine [Pepcid] 20 mg PO DAILY #1 tablet Continue oxyCODONE-APAP 5-325MG [Percocet 5-325 mg] 1 tab PO Q6HR PRN PRN Reason: Pain Magnesium Oxide [Magnesium] 500 mg PO PC-BRKFST L.acidoph,Paracasei, B.lactis [Probiotic] 1 cap PO PC-BRKFST Sertraline [Zoloft] 100 mg PO HS Discharge Medication List oxyCODONE-APAP 5-325MG [Percocet 5-325 mg] 1 tab PO Q6HR PRN 10/15/13 [History] L.acidoph,Paracasei, B.lactis [Probiotic] 1 cap PO PC-BRKFST 08/07/23 [History] Magnesium Oxide [Magnesium] 500 mg PO PC-BRKFST 08/07/23 [History] Sertraline [Zoloft] 100 mg PO HS 08/07/23 [History] Famotidine [Pepcid] 20 mg PO DAILY #1 tablet 08/10/23 [Rx] Follow up Appointment(s)/Referral(s): Isaiah Youssef MD [STAFF PHYSICIAN] - 1 Week Rafaela Walters MD [STAFF PHYSICIAN] - 08/24/23 1:45 pm Discharge Disposition: HOME SELF-CARE
== END 2023-08-10 15:03 | disposition home or self-care (01) ==
LOC: EC 21:28 → 6NMEDSUR 08-07 04:30
PROVIDERS: ADMIT Family Medicine; ATTEND Family Medicine
DX: K85.90 Acute pancreatitis without necrosis or infection, unspecified (principal); E86.0 Dehydration; M79.7 Fibromyalgia; F41.8 Other specified anxiety disorders; F31.9 Bipolar disorder, unspecified; R93.3 Abnormal findings on diagnostic imaging of other parts of digestive tract; F17.200 Nicotine dependence, unspecified, uncomplicated; Z82.49 Family history of ischemic heart disease and other diseases of the circulatory system; R79.89 Other specified abnormal findings of blood chemistry
CPT/HCPCS: 96376 ×5; 96361 ×2; 96365; 96366 ×4; 96367 ×2; 96375 ×3; 99285; 36415; 80053 ×3; 80048; 82150; 83605; 83690 ×2; 85025 ×4; 81001; 76705; G0378 ×4; J2765; J2405 ×5; J3490 ×3; J1170 ×4; J3480; J1885 ×2

== ENCOUNTER → 2023-09-16 | Outpatient (CLI) | payer OTHER ==
--- NOTE | 2023-09-16 11:44 | NM ---
Nuclear medicine hepatobiliary scan. HISTORY: Pain. DOSAGE: The patient received 8 0z Ensure plus and 5 mCi of Technetium 99m Choletec. FINDINGS: There is normal hepatic extraction. The gallbladder is seen by 40 minutes. There is bilia ry to bowel clearance by 10 minutes. Ejection fraction is 72%. IMPRESSION: 1. Normal hepatobiliary exam
== END | disposition home or self-care (01) ==
LOC: RADNMMAIN 07:08
PROVIDERS: ATTEND Family Medicine
DX: K85.90 Acute pancreatitis without necrosis or infection, unspecified (principal)
CPT/HCPCS: 78227; A9537; J2805

== ENCOUNTER 2023-10-02 11:45 | Day surgery (SDC) | payer OTHER ==
[~2023-10-02 11:45] MED LIST changes: -DEXAMETHASONE SOD PHOSPHATE 10 MG/ML 1 ML VIAL IV ONE; +LACTATED RINGERS 1,000 ML BAG ONE; -LACTATED RINGERS 1,000 ML IV SCH; -LIDOCAINE 1% 20 ML VIAL (10MG/ML) FOR IV START INTRADERMA PRN; -MIDAZOLAM 2 MG/2 ML VIAL IV PRN; -ONDANSETRON 4 MG/2 ML VIAL IVP ONE; +ONDANSETRON 4 MG/2 ML VIAL ONE; +PROPOFOL 10 MG/ML 20 ML VIAL IV ONE; -Pre Op ABX Message 1 EACH MISC MISCELLANE ONE; -SCOPOLAMINE 1.5MG/72HR PATCH TRANSDERM ONE
--- NOTE | 2023-10-23 17:09 | P.PCN ---
Date of Procedure: 10/02/23 Procedure(s) Performed: This is an addendum to the procedure that was performed on 10/02/2023 Procedure performed EGD with biopsy Procedure: Scope was advanced into the duodenum. Careful examination was performed. There was evidence of mild antral gastritis and biopsies were done from this area. Small hiatal hernia noted. Biopsies were done from the esophagus and duodenum as well. Patient tolerated the procedure well
== END 2023-10-02 12:24 ==
LOC: ORWHC2ENDO 11:45
PROVIDERS: ATTEND Internal Medicine Gastroenterology
DX: K29.50 Unspecified chronic gastritis without bleeding (principal); K31.9 Disease of stomach and duodenum, unspecified; F41.8 Other specified anxiety disorders; F17.200 Nicotine dependence, unspecified, uncomplicated; Z88.0 Allergy status to penicillin; Z88.8 Allergy status to other drugs, medicaments and biological substances; Z79.899 Other long term (current) drug therapy
CPT/HCPCS: 43239; 81025; 88305